=== PATIENT | male | born 1970 | race Caucasian/White ===

== ENCOUNTER → 2019-11-22 07:02 | Outpatient (CLI) | payer OTHER, SELFPAY ==
[2017-01-12 15:06] VITALS: BMI 33.5
[2019-11-22 10:22] LABS: Absolute Neutrophil Count 2.6 X10^3/uL (2.0-7.7); Basophil# 0.03 X10^3/uL; Basophil% 0.6 % (0-1); Eosinophil# 0.14 X10^3/uL; Eosinophils% 2.7 % (0-5); Hematocrit 47.2 % (40-54); Hemoglobin 15.5 g/dL (13.0-16.5); Lymphocyte % 34.2 % (19-41); Mean Corp Hgb Conc 32.8 g/dL (32-36); Mean Corpuscular Hgb 30.2 pg (27.0-32.0); Mean Platelet Vol. 10.5 fl (6.2-12.0); Monocyte# 0.65 X10^3/uL; Monocyte% 12.3 % (0-10); NRBC Flagged by Analyzer 0 % (0-5); Neutrophil # 2.63 X10^3/uL (2.7-7.7); Neutrophil % 49.8 % (47-70); Platelet Count 242 K/mm3 (150-450); RBC Distribution Width CV 11.8 % (11.6-14.6); RBC Distribution Width SD 39.8 fl (35.1-43.9); Red Blood Count 5.13 M/mm3 (4.6-6.2); White Blood Count 5.3 K/mm3 (4.4-11.0)
[2019-11-22 10:32] LABS: Anion Gap 3 (5-15); BUN 21 mg/dL (7-18); BUN/Creat Ratio 13.7 RATIO (10-20); Chloride 106 mmol/L (98-107); Cholesterol 163 mg/dL (200); Creatinine, Serum 1.53 mg/dL (0.70-1.30); EST Glomerular Filtration Rate 52 mL/min (>60); Est Glom Filt Rate - Afr Amer 63 mL/min (>60); Glucose 91 mg/dL (74-106); High Density Lipoprotein 30 mg/dL; Potassium 3.8 mmol/L (3.5-5.1); Sodium Level 139 mmol/L (136-145); Triglycerides 308 mg/dL; Very Low Density Lipoprotein 62 mg/dL (5-40); Vitamin D,25 Hydroxy 18.2 ng/mL
[2019-11-22 10:57] LABS: Erythrocyte Sedimentation Rate 5 mm/hr (0-15)
== END ==
PROVIDERS: PCP Family Medicine; Referring Provider Family Medicine; Visit Provider Family Medicine
DX: E78.2 Mixed hyperlipidemia (principal); E55.9 Vitamin D deficiency, unspecified; R76.0 Raised antibody titer
CPT/HCPCS: 36415; 80048; 80061; 82306; 85025; 85652

== ENCOUNTER → 2022-11-28 | Outpatient (CLI) | payer OTHER, SELFPAY ==
[2022-11-28 10:23] LABS: Absolute Lymphocyte Count 1.83 X10^3/uL (0.83-4.51); Absolute Neutrophil Count 2.5 X10^3/uL (2.0-7.7); Basophil# 0.05 X10^3/uL; Basophil% 0.9 % (0-1); Eosinophil# 0.22 X10^3/uL; Eosinophils% 4.1 % (0-5); Hematocrit 49.5 % (40-54); Hemoglobin 16.3 g/dL (13.0-16.5); Lymphocyte # 1.83 X10^3/ul (0.83-4.51); Mean Corp Hgb Conc 32.9 g/dL (32-36); Mean Corpuscular Volume 94.1 fL (80-94); Mean Platelet Vol. 10.8 fl (6.2-12.0); Monocyte# 0.76 X10^3/uL; Monocyte% 14.1 % (0-10); NRBC Flagged by Analyzer 0 % (0-5); Neutrophil # 2.49 X10^3/uL (2.7-7.7); Neutrophil % 46.3 % (47-70); Platelet Count 227 K/mm3 (150-450); RBC Distribution Width CV 11.6 % (11.6-14.6); RBC Distribution Width SD 40.1 fl (35.1-43.9); Red Blood Count 5.26 M/mm3 (4.6-6.2); White Blood Count 5.4 K/mm3 (4.4-11.0)
[2022-11-28 10:43] LABS: Microalbumin,Random Urine < 5.0 mg/L (NO RANGE EST.)
[2022-11-28 10:59] LABS: ALB/GLOB Ratio 1.3 RATIO (0.9-2.4); AST(SGOT) 22 U/L (15-37); Alanine Aminotransfer ALT/SGPT 49 U/L (16-61); Alkaline Phosphatase 38 U/L (45-117); Anion Gap 5 (5-15); BUN 18 mg/dL (7-18); BUN/Creat Ratio 12.5 RATIO (10-20); Calcium,Total 9.6 mg/dL (8.5-10.1); Chloride 105 mmol/L (98-107); Cholesterol 195 mg/dL (200); Creatinine, Serum 1.44 mg/dL (0.70-1.30); EST Glomerular Filtration Rate 55 mL/min (>60); Est Glom Filt Rate - Afr Amer 66 mL/min (>60); Globulin 3.1 g/dL (2.2-4.2); Glucose 103 mg/dL (74-106); High Density Lipoprotein 38 mg/dL; PSA,Total - Annual Screen 0.45 ng/mL (0.00-4.00); Potassium 4.2 mmol/L (3.5-5.1); Protein, Total 7.1 g/dL (6.4-8.2); Sodium Level 138 mmol/L (136-145); Triglycerides 305 mg/dL; Very Low Density Lipoprotein 61 mg/dL (5-40)
== END | disposition home or self-care (01) ==
LOC: MTLAB 07:09
PROVIDERS: PCP Family Medicine; Referring Provider Family Medicine; Visit Provider Family Medicine
DX: E78.1 Pure hyperglyceridemia (principal); L40.50 Arthropathic psoriasis, unspecified; N18.31 Chronic kidney disease, stage 3a; E88.81 Metabolic syndrome and other insulin resistance; I12.9 Hypertensive chronic kidney disease with stage 1 through stage 4 chronic kidney disease, or unspecified chronic kidney disease
CPT/HCPCS: 36415; 80053; 80061; 82043; 82570; 84153; 85025; G0103

== ENCOUNTER → 2023-12-07 | Outpatient (CLI) | payer OTHER, SELFPAY ==
[2023-12-07 10:37] LABS: Absolute Lymphocyte Count 1.81 X10^3/uL (0.83-4.51); Absolute Neutrophil Count 2.2 X10^3/uL (2.0-7.7); Basophil# 0.05 X10^3/uL; Eosinophil# 0.35 X10^3/uL; Eosinophils% 6.7 % (0-5); Hematocrit 47.2 % (40-54); Hemoglobin 15.7 g/dL (13.0-16.5); Lymphocyte # 1.81 X10^3/ul (0.83-4.51); Lymphocyte % 34.5 % (19-41); Mean Corp Hgb Conc 33.3 g/dL (32-36); Mean Corpuscular Hgb 30.7 pg (27.0-32.0); Mean Corpuscular Volume 92.4 fL (80-94); Mean Platelet Vol. 10.7 fl (6.2-12.0); Monocyte# 0.81 X10^3/uL; Monocyte% 15.5 % (0-10); NRBC Flagged by Analyzer 0 % (0-5); Neutrophil # 2.21 X10^3/uL (2.7-7.7); Neutrophil % 42.1 % (47-70); Platelet Count 212 K/mm3 (150-450); RBC Distribution Width CV 11.9 % (11.6-14.6); Red Blood Count 5.11 M/mm3 (4.6-6.2); White Blood Count 5.2 K/mm3 (4.4-11.0)
[2023-12-07 10:57] LABS: ALB/GLOB Ratio 1.1 RATIO (0.9-2.4); AST(SGOT) 27 U/L (15-37); Alanine Aminotransfer ALT/SGPT 48 U/L (16-61); Albumin, Serum 3.9 g/dL (3.2-5.0); Alkaline Phosphatase 41 U/L (45-117); Anion Gap 7 (5-15); BUN 19 mg/dL (7-18); Calcium,Total 9.4 mg/dL (8.5-10.1); Chloride 105 mmol/L (98-107); Creatinine, Serum 1.36 mg/dL (0.70-1.30); EST Glomerular Filtration Rate 58 mL/min (>60); Est Glom Filt Rate - Afr Amer 71 mL/min (>60); Globulin 3.4 g/dL (2.2-4.2); Glucose 100 mg/dL (74-106); Potassium 4.1 mmol/L (3.5-5.1); Protein, Total 7.3 g/dL (6.4-8.2); Sodium Level 139 mmol/L (136-145)
[2023-12-07 11:06] LABS: Hemoglobin A1c 5.4 % (3.8-5.6)
== END | disposition home or self-care (01) ==
PROVIDERS: PCP Family Medicine; Referring Provider Family Medicine; Visit Provider Family Medicine
DX: I12.9 Hypertensive chronic kidney disease with stage 1 through stage 4 chronic kidney disease, or unspecified chronic kidney disease (principal); L40.50 Arthropathic psoriasis, unspecified; N18.31 Chronic kidney disease, stage 3a; E88.810 Metabolic syndrome
CPT/HCPCS: 36415; 80053; 82306; 83036; 85025

== ENCOUNTER → 2024-07-04 | Outpatient (CLI) | payer OTHER, SELFPAY ==
[2024-07-04 10:46] LABS: Absolute Lymphocyte Count 1.71 X10^3/uL (0.83-4.51); Basophil# 0.05 X10^3/uL; Basophil% 0.8 % (0-1); Eosinophil# 0.32 X10^3/uL; Eosinophils% 5.4 % (0-5); Hematocrit 46.4 % (40-54); Hemoglobin 15.5 g/dL (13.0-16.5); Lymphocyte # 1.71 X10^3/ul (0.83-4.51); Mean Corp Hgb Conc 33.4 g/dL (32-36); Mean Corpuscular Hgb 31.1 pg (27.0-32.0); Mean Corpuscular Volume 93.2 fL (80-94); Mean Platelet Vol. 10.1 fl (6.2-12.0); Monocyte# 0.79 X10^3/uL; Monocyte% 13.4 % (0-10); NRBC Flagged by Analyzer 0 % (0-5); Neutrophil # 3.02 X10^3/uL (2.7-7.7); Neutrophil % 51.2 % (47-70); Platelet Count 277 K/mm3 (150-450); RBC Distribution Width CV 11.8 % (11.6-14.6); RBC Distribution Width SD 40.6 fl (35.1-43.9); Red Blood Count 4.98 M/mm3 (4.6-6.2); White Blood Count 5.9 K/mm3 (4.4-11.0)
[2024-07-04 11:26] LABS: Microalbumin,Random Urine < 12.0 mg/L (NO RANGE EST.); Microalbumin:Creatinine Ratio UNABLE TO CALCULATE mg/g CRE
[2024-07-04 11:33] LABS: Hemoglobin A1c 5.3 % (<=5.6)
[2024-07-04 11:56] LABS: ALB/GLOB Ratio 1.6 RATIO (0.9-2.4); AST(SGOT) 25 U/L (<=37); Alanine Aminotransfer ALT/SGPT 30 U/L (<=46); Albumin, Serum 4.5 g/dL (3.5-5.0); Alkaline Phosphatase 45 U/L (40-129); Anion Gap 13 (5-15); BUN 18 mg/dL (4-19); BUN/Creat Ratio 13.4 RATIO (10-20); Bilirubin, Direct 0.27 mg/dL (0.00-0.30); Calcium,Total 9.8 mg/dL (7.6-11.0); Chloride 102 mmol/L (98-108); Cholesterol 173 mg/dL (<=200); Creatinine, Serum 1.34 mg/dL (0.70-1.20); EST Glomerular Filtration Rate 63 (>60); Globulin 2.9 g/dL (2.2-4.2); Glucose 98 mg/dL (70-99); Hepatitis B Surface Antibody Nonreactive; Hepatitis B Surface Antigen Nonreactive (Nonreactive); Hepatitis C Antibody Nonreactive (Nonreactive); High Density Lipoprotein 30 mg/dL; Low Density Lipoprotein Calc. 92 mg/dL; Potassium 4.5 mmol/L (3.3-5.1); Protein, Total 7.3 g/dL (5.9-8.4); Sodium Level 141 mmol/L (133-145); Total Bilirubin 0.67 mg/dL (0.00-1.30); Triglycerides 256 mg/dL; Very Low Density Lipoprotein 51 mg/dL (5-40); cholesterol:hdl ratio screen 5.81
[2024-07-07 04:07] LABS: HCV Quant. RNA PCR HCV Not Detected IU/mL (.); Hepatitis B Core Ab Total Negative (Negative); QNTFERON TB Mitogen Value > 10.00 IU/mL (.); QNTFERON TB Nil Value 0.04 IU/mL (.); QNTFERON TB1+ Ag Value 0.04 IU/mL (.); QNTFERON TB2+ Ag Value 0.03 IU/mL (.); QNTIFERON TB Positive Criteria Negative (Negative)
== END | disposition home or self-care (01) ==
LOC: MTLAB 07:02
PROVIDERS: PCP Family Medicine; Referring Provider Family Medicine; Visit Provider Family Medicine
DX: I12.9 Hypertensive chronic kidney disease with stage 1 through stage 4 chronic kidney disease, or unspecified chronic kidney disease (principal); L40.50 Arthropathic psoriasis, unspecified; N18.31 Chronic kidney disease, stage 3a; R73.01 Impaired fasting glucose; E78.2 Mixed hyperlipidemia; Z79.899 Other long term (current) drug therapy
CPT/HCPCS: 36415; 80053; 80061; 82043; 82248; 82570; 83036; 85025; 86480; 86704; 86706; 86803; 87340; 87522

== ENCOUNTER → 2024-08-30 | Outpatient (CLI) | payer OTHER, SELFPAY ==
--- OUTSIDE RECORDS SUMMARY | 2024-08-30 07:08 | XMS RPT_ITS | CCD ---
Author Organization [facility] Care Team Providers Care Access Database Developer Name Role Phone Ch LASER MACHINE OPERATOR, Jennifer Tory Unavailable Unavaila ble Ch LASER MACHINE OPERATOR, Jennifer Tory Unavailable Unavaila ble No, Physician Unavailable Unavailable Ivanauskas, Saulius Unavailable Unavailable Ivanauskas, Saulius Unavailable Unavailable Saenz, Thomas A Unavailable Unavailable Stadnick, Carson S Unavailable Unavailable Stadnick, Carson S Unavailable Unavailable No, Physician Primary Care Provider Unavailabl e No, Physician Primary Care Provider Unavailabl e Saenz, Thomas Mark Primary Care Provider Saenz Thomas A Unavailable Unavailable Unavailable Dnay POPE, Thomas Mark Primary Care Provider No, Physician Primary Care Provider Unavailabl e SAENZ, THOMAS MARK Primary Care Unavailable SAENZ, THOMAS MARK Admitting Unavailable Saenz, Thomas Referring Unavailable Saenz, Thomas Primary Care Unavailable Saenz, Thomas Attending Unavailable Falls, Luis Consulting Unavailable Saenz, Thomas Primary Care Unavailable Saenz, Thomas Attending Unavailable Saenz, Thomas Referring Unavailable FALLS, LUIS MORSE Attending Unavailabl e SAENZ, THOMAS MARK Primary Care Unavailable FALLS, LUISBreezy MORSE Attending Unavailabl e SAENZ, THOMAS MARK Primary Care Unavailable FALLS, LUIS MORSE Attending Unavailabl e SAENZ, THOMAS MARK Primary Care Unavailable FALLS, LUIS MORSE Attending Unavailabl e SAENZ, THOMAS MARK Primary Care Unavailable FALLS, LUIS MORSE Attending Unavailabl e SAENZ, THOMAS MARK Primary Care Unavailable Allergies Allergy Classification Reported Allergen(s) Allergy Type Date of Onset Reaction(s) Facility Penicillins (antibiotic) (1 source) Amoxicillin; Translations: [Amoxicillin TABS] [facility] Work Phone: (20 sources) amoxicillin; Translations: [amoxicillin] Drug Allergy 07-05-2015 [facility] Work Phone: (1 source) Amoxicillin Drug Allergy 03-23-2023 [facility] Medications Current Medications Medication Drug Class(es) Dates Sig (Normalized) Sig (Original) aspirin 325 mg oral tablet (20 sources) Platelet Aggregation Inhibitor, Nonsteroidal Anti-inflammatory Drug take 1 tablet by mouth once daily aspirin 325 MG tablet Take 1 (one) tablet (325 mg total) by mouth daily . Active take 1 tablet by mouth once roman y Aspirin EC 325 MG Oral Tablet Delayed Release Take 1 tablet daily Quantity: 0 Refills: 0 Ordered: 18-Jul-2020 DO Active cholecalciferol 0.05 mg oral tablet (20 sources) Vitamin D take 1 tablet by mouth once daily cholecalciferol, vitamin D3, 50 mcg (2,000 unit) Tab Take 1 (one) tablet (2,000 Units total) by mouth daily . Active cod liver oil Oil (20 sources) cod liver oil Oi l Take by mouth daily . Active cod liver oil Oi l Take by mouth daily . 0 Active 1 ml etanercept 50 mg/ml auto-injector (20 sources) Tumor Necrosis Factor Beverly Start: 04-29-2023 End: 04-29-2024 inject 1 mL by subcutaneous injection every week etanercept (EnbreL SureClick) 50 mg/mL (1 mL) Pen single use prefilled syringe Indications: Bilateral sacroiliitis , Psoriatic arthritis (HCC) Inject 1 mL (50 mg total) under the skin once a week . 4 mL 11 04/29/2024 Active Start: 04-15-2021 End: 06-18-2023 inject 1 mL by subcutaneous injection every week EnbreL 50 mg/mL (1 mL) single use prefilled syringe Indications: Bilateral sacroiliitis (HCC) , Psoriatic arthritis (HCC) Inject 1 mL (50 mg total) under the skin once a week . 12 mL 3 04/29/2023 04/29/2023 Discontinued Start: 01-13-2019 End: 01-05-2020 inject 40 mg by subcutaneous injection once EnbreL 50 mg/mL (1 mL) single use prefilled syringe Indications: Psoriatic arthritis (HCC) Inject 40 mg under the skin once every Thursday. Keep Refrigerated. . 4 mL 2 07/10/2019 01/05/2020 Discontinued (Reorder (Suppress CancelRx Message to Pharmacy)) Start: 05-27-2018 End: 01-13-2019 inject 1 mL by subcutaneous injection every week ENBREL 50 mg/mL (0.98 mL) single use prefilled syringe Indications: Psoriatic arthritis (HCC) Inject 1 ml (50 mg) under the skin once weekly. Keep Refrigerated. 4 mL 5 05/27/2018 01/13/2019 Discontinued (Reorder (Suppress CancelRx Message to Pharmacy)) Start: 07-10-2016 End: 01-15-2018 ENBREL 50 mg/mL (0.98 mL) si ngle use prefilled syringe Indications: Psoriatic arthritis (HCC) Inject 1 ml (50 mg) under the skin once a week Keep Refrigerated. 4 mL 5 09/22/2017 Active Start: 08-07-2015 ENBREL SURECLI CK 50 MG/ML SOAJ SQ q 7day ETANERCEPT [id number] Jennifer Cevallos folic acid 0.8 mg oral tablet (20 sources) take 1 tablet by yrn th once daily folic acid (FOLVITE) 800 MCG tablet Take 1 (one) tablet (800 mcg total) by mouth daily . Active take 1 tablet by mouth once roman y Folic Acid 1 MG Oral Tablet TAKE 1 TABLET DAILY. Quantity: 0 Refills: 0 Ordered: 18-Jul-2020 DO Active Folic Acid TABS Quantity: 0 Refills: 0 Ordered: 18-Jul-2020 DO Active 24 hr metFORMIN hydrochloride 500 mg extended release oral tablet (8 sources) Biguanide Start: 04-16-2022 take 1 tablet by mouth once daily metFORMIN (GLUCOPHAGE-XR) 500 MG 24 hr tablet Take 1 (one) tablet (500 mg total) by mouth daily . 04/16/2022 Active 1 ml secukinumab 150 mg/ml auto-injector (4 sources) Interleukin-17A Antagonist Start: 08-11-2024 secukinumab (Cosentyx Pen, 2 Pens,) 150 mg/mL Pen Indications: Psoriasis , Psoriatic arthritis (HCC) Inject 2 mL (300 mg total) under the skin every 28 days To start after loading dose Start: 08/11/24. 2 mL 08/11/2024 Active Start: 08-11-2024 secukinumab (C osentyx Pen, 2 Pens,) 150 mg/mL Pen Indications: Psoriasis , Psoriatic arthritis (HCC) Inject 2 mL (300 mg total) under the skin every 28 days To start after loading dose Start: 08/11/24. 2 mL 11 08/11/2024 Active Start: 07-07-2024 secukinumab (C osentyx Pen, 2 Pens,) 150 mg/mL Pen Indications: Psoriasis , Psoriatic arthritis (HCC) Take 300 mg once weekly at weeks 0, 1, 2, 3, and 4 followed by 300 mg every 4 weeks. . 10 mL 07/07/2024 Active Completed/Discontinued Medications Medication Drug Class(es) Dates Sig (Normalized) Sig (Original) acetaminophen 325 mg / HYDROcodone bitartrate 5 mg oral tablet (4 sources) Opioid Agonist Start: 08-07-2015 End: 08-07-2015 take 1 tablet by mouth every four hours as needed NORCO 5-325 MG TABS 1 tab po q4h as needed HYDROCODONE-ACETAMI NOPHEN [id number] Jennifer Cevallos atenolol 50 mg oral tablet (20 sources) beta-Adrenergic Beverly Start: 08-07-2015 take 1 tablet by mouth once daily ATENOLOL 50 MG TABS One tablet by mouth daily ATENOLOL [id number] Jennifer Cevallos ergocalciferol 2000 unt oral tablet (2 sources) Provitamin D2 Compound take 1 tablet by mouth once daily VITAMIN D2 2000 UNIT TABS One tablet by mouth daily. ERGOCALCIFEROL [id number] Quiana A Posten LASER MACHINE OPERATOR meloxicam 15 mg oral tablet (1 source) Nonsteroidal Anti-inflammatory Drug Start: 07-18-2020 take 1 tablet by mouth once daily Meloxicam 15 MG Oral Tablet TAKE 1 TABLET DAILY. Quantity: 15 Refills: 0 Ordered: 03-Aug-2020 Rigoberto Perez MD Start : 18-Jul-2020 Active MULTIPLE VITAMIN (2 sources) take 1 tablet by mouth once daily MULTIPLE VITAMIN TABS One tablet by mouth daily. MULTIPLE VITAMIN [id number] Quiana A Posten LASER MACHINE OPERATOR rivaroxaban 20 mg oral tablet (5 sources) Factor Xa Inhibitor Start: 08-07-2015 End: 01-27-2017 take 1 tablet by mouth once daily XARELTO 20 MG TABS One tablet by mouth daily RIVAROXABAN [id number] Cullen Flores End: 01-15-2017 take 1 tablet by mouth twice daily rivaroxaban (XARELTO) 15 mg Tab Take 15 mg by mouth 2 (two) times a day. 01/15/2017 Discontinued Vitamin D CAPS (1 source) Vitamin D CAPS T YASH 1 CAPSULE Daily Quantity: 0 Refills: 0 Ordered: 18-Jul-2020 DO Active Problems Active Problems Problem Classification Problem Date Documented Da te Episodic/Chronic Essential hypertension (20 sources) Hypertensive disorder; Translations: [Essential (primary) hypertension] Onset: 01-05-2020 02-19-2016 Chronic Hypertension with complications and secondary hypertension (1 source) Hypertensive chronic kidney disease with stage 1 through stage 4 chronic kidney disease, or unspecified chronic kidney disease; Translations: [Hypertensive chronic kidney disease with stage 1 through stage 4 chronic kidney disease, or unspecified chronic kidney disease] Onset: 07-07-2024 Chronic Immunizations and screening for infectious disease (1 source) Viral screening status; Translations: [Encounter for screening for other viral diseases] Episodic Osteoarthritis (3 sources) Osteoarthritis; Translations: [Arthropathy] Chronic Other aftercare (1 source) Patient encounter status; Translations: [Encounter for therapeutic drug level monitoring] Episodic Other aftercare (3 sources) Taking high risk medication; Translations: [Other parts counterman (current) drug therapy] 05-03-2023 Episodic Other aftercare (2 sources) Other parts counterman (current) drug therapy; Translations: [Other correction (current) drug therapy] Onset: 06-29-2024 Episodic Other connective tissue disease (1 source) Foot pain; Translations: [Pain in limb] Episodic Other connective tissue disease (1 source) Peroneal tendinitis of right lower limb; Translations: [Other enthesopathy of ankle and tarsus] Episodic Other inflammatory condition of skin (7 sources) Psoriasis with arthropathy; 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, unspecified] Onset: 08-07-2015 08-07-2015 Chronic Other inflammatory condition of skin (20 sources) Psoriatic arthritis; 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, unspecified] Onset: 08-07-2015 01-05-2020 Chronic Other inflammatory condition of skin (4 sources) Arthropathic psoriasis, unspecified; 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, unspecified] Onset: 04-09-2022 Chronic Other inflammatory condition of skin (3 sources) Psoriasis; Translations: [Psoriasis, unspecified] 04-29-2024 Chronic Other inflammatory condition of skin (2 sources) Psoriasis, unspecified; Translations: [Psoriasis, unspecified] Onset: 04-29-2024 Chronic Other non-traumatic joint disorders (1 source) Bilateral rotator cuff arthropathy of shoulder; Translations: [Other specific arthropathies, not elsewhere classified, right shoulder] Chronic Other non-traumatic joint disorders (1 source) Ankle pain; Translations: [Pain in joint, ankle and foot] Episodic Other skin disorders (1 source) H/O: arthritis; Translations: [Personal history of arthritis] Episodic Spondylosis; intervertebral disc disorders; other back problems (7 sources) Bilateral inflammation of sacroiliac joint; Translations: [Sacroiliitis, not elsewhere classified] Onset: 04-29-2024 Chronic Unclassified (4 sources) Patient encounter status; Translations: [Encounter for monitoring of etanercept therapy] Past or Other Problems Problem Classification Problem Date Documented Da te Episodic/Chronic Coagulation and hemorrhagic disorders (20 sources) Factor V Leiden mutation; Translations: [Disorder of hemostatic system] Onset: 01-30-2016 Resolved: 04-09-2022 01-30-2016 Chronic Other lower respiratory disease (20 sources) Multiple nodules of lung; Translations: [Other nonspecific abnormal finding of lung field] Onset: 08-07-2015 Resolved: 04-09-2022 08-07-2015 Episodic Other nutritional; endocrine; and metabolic disorders (20 sources) 5,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; 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] Onset: 01-30-2016 Resolved: 04-09-2022 01-30-2016 Chronic Pulmonary heart disease (20 sources) Pulmonary embolism; Translations: [Other pulmonary embolism without acute cor pulmonale] Onset: 08-07-2015 Resolved: 04-09-2022 08-07-2015 Episodic Unclassified (1 source) Psoriatic arthritis (HCC) Results Test Name Value Interpretation Reference Range Facility Hepatitis B Core Ab Totalon 07-07-2024 HEP B CORE,TOT Negative Normal Negative [facility] Comment on above: Result Comment: Perf ormed at: CB - [facility] [place] [address], [place], [place] [id number] Director Of Litigation: Morgan Patterson PhD, Phone: [phone] Performed at: [facility] [address] [id number] Director Of Litigation: Rasheed Berumen MD, Phone: [phone] Performed By: #### L 500.4100, L100.0100, L501.9985, L500.4050 #### [facility] [address] [place], [address] Hepatitis C,RNA PCR Viral Lo staff radiographer 07-07-2024 HCV log 10 TNP Normal . [facility] Comment on above: Performed By: #### L 500.4100, L100.0100, L501.9985, L500.4050 #### [facility] [address] [place], [address] HCV QT RNA PCR Not detected Normal . [facility] Comment on above: Performed By: #### L 500.4100, L100.0100, L501.9985, L500.4050 #### [facility] [address] [place], [place], [id number] TEST INFO: Comment Normal . [facility] Comment on above: Result Comment: The quantitative range of this assay is 15 IU/mL to 100 million IU/mL. Performed By: #### L 500.4100, L100.0100, L501.9985, L500.4050 #### [facility] [address] [place], [address] Quantiferon TB-Gold+on 07-07 QFT MITOGEN SUSANNE > 10.00 Normal . [facility] Comment on above: Performed By: #### L 500.4100, L100.0100, L501.9985, L500.4050 #### [facility] [address] [place], [address] QFT NIL VALUE 0.04 IU/mL Normal . [facility] Comment on above: Performed By: #### L 500.4100, L100.0100, L501.9985, L500.4050 #### [facility] [address] [place], [place], [phone] (614) QFT TB GOLD+ Comment Normal . [facility] Comment on above: Result Comment: Jeffrey tiFERON-TB Gold Plus is a qualitative indirect test for M tuberculosis infection (including disease) and is intended for use in conjunction with risk assessment, radiography, and other medical and diagnostic evaluations. The QuantiFERON-TB Gold Plus result is determined by subtracting the Nil value from either TB antigen (Ag) value. The Mitogen tube serves as a control for the test. Performed By: #### L 500.4100, L100.0100, L501.9985, L500.4050 #### [facility] [address] [place], [address] (928) QFT TB POS CRIT Negative Normal Negative [facility] Comment on above: Result Comment: No r esponse to M tuberculosis antigens detected. Infection with M tuberculosis is unlikely, but high risk individuals should be considered for additional testing (ATS/IDSA/CDC Clinical Practice Guidelines, 2017). The reference range is an Antigen minus Nil result of <0.35 IU/mL. The specimen received for QuantiFERON testing was incubated by the ordering institution. Specific procedures outlined in our Directory of Services and in the package insert for the QuantiFERON Gold (In Tube) test must be followed to enable for proper stimulation of cells for the production of interferon gamma. Chemiluminescence immunoassay methodology Performed By: #### L 500.4100, L100.0100, L501.9985, L500.4050 #### [facility] [address] [place], [place], [phone] ([address] QFT TB1+ AG SUSANNE 0.04 IU/mL Normal . [facility] Comment on above: Performed By: #### L 500.4100, L100.0100, L501.9985, L500.4050 #### [facility] [address] [place], [address] QFT TB2+ AG SUSANNE 0.03 IU/mL Normal . [facility] Comment on above: Performed By: #### L 500.4100, L100.0100, L501.9985, L500.4050 #### [facility] [address] [place], [address] Bilirubin, Directon 07-05-19 Bilirubin.direct [Mass/Vol] 0.27 mg/dL Normal 0.00-0.30 [facility] Comment on above: Order Comment: Order Date: 06/13/24 Order Info: [id number] - CMP Order Info: [id number] - LIPID RESULTS FOR CMP,MIACRE,A1C,LIPID,CBCD GO TO DR. SAENZ RESULTS FOR CBCD,CREATININE,HEP PANELS,LIVER, AND QF GO TO [facility] FAX: Performed By: #### L 3100.0460, L3400.8000, L502.0250, L3890.6102, L501.4700, L3890.6202, L3890.6301, L7000.7000 #### [facility] [address] [place], [address] CBC W/Diff, Automatedon 06-08 Absolute Lymph 1.71 X10 3/uL Normal 0.83-4.51 [facility] Comment on above: Order Comment: Order Date: 06/13/24 Order Info: [id number] - CBCD Performed By: #### L 500.4100, L100.0100, L501.9985, L500.4050 #### [facility] [address] [place], [address] Absolute Neut 3.0 X10 3/uL Normal 2.0-7.7 [facility] Comment on above: Order Comment: Order Date: 06/13/24 Order Info: [id number] - CBCD Performed By: #### L 500.4100, L100.0100, L501.9985, L500.4050 #### [facility] [address] [place], [address] Basophils/100 WBC (Bld) 0.8 % Normal 0-1 [facility] Comment on above: Order Comment: Order Date: 06/13/24 Order Info: 0184-1 - CBCD Performed By: #### L 500.4100, L100.0100, L501.9985, L500.4050 #### [facility] [address] [place], [address] Eosinophils/100 WBC (Bld) 5.4 % High 0-5 [facility] Comment on above: Order Comment: Order Date: 06/13/24 Order Info: 0184-1 - CBCD Performed By: #### L 500.4100, L100.0100, L501.9985, L500.4050 #### [facility] [address] [place], [address] Erythrocyte distribution width (RBC) [Ratio] 11.8 % Normal 11.6-14.6 [facility] Comment on above: Order Comment: Order Date: 06/13/24 Order Info: 0184-1 - CBCD Performed By: #### L 500.4100, L100.0100, L501.9985, L500.4050 #### [facility] [address] [place], [address] Hematocrit (Bld) [Volume fraction] 46.4 % Normal 40-54 [facility] Comment on above: Order Comment: Order Date: 06/13/24 Order Info: 0184-1 - CBCD Performed By: #### L 500.4100, L100.0100, L501.9985, L500.4050 #### [facility] [address] [place], [address] Hemoglobin (Bld) [Mass/Vol] 15.5 g/dL Normal 13.0-16.5 [facility] Comment on above: Order Comment: Order Date: 06/13/24 Order Info: 0184-1 - CBCD Performed By: #### L 500.4100, L100.0100, L501.9985, L500.4050 #### [facility] [address] [place], [address] IG% 0.200 Normal 0.0-0.9 [facility] Comment on above: Order Comment: Order Date: 06/13/24 Order Info: [id number] - CBCD Result Comment: IG% - Immature Granulocytes (promyelocytes, myelocytes and metamyelocytes) > 1% indicates that a LEFT SHIFT is Present. Performed By: #### L 500.4100, L100.0100, L501.9985, L500.4050 #### [facility] [address] [place], [address] Lymphocytes/100 WBC (Bld) 29.0 % Normal 19-41 [facility] Comment on above: Order Comment: Order Date: 06/13/24 Order Info: 0184-1 - CBCD Performed By: #### L 500.4100, L100.0100, L501.9985, L500.4050 #### [facility] [address] [place], [address] MCH (RBC) [Entitic mass] 31.1 pg Normal 27.0-32.0 [facility] Comment on above: Order Comment: Order Date: 06/13/24 Order Info: 0184-1 - CBCD Performed By: #### L 500.4100, L100.0100, L501.9985, L500.4050 #### [facility] [address] [place], [address] MCHC (RBC) [Mass/Vol] 33.4 g/dL Normal 32-36 [facility] Comment on above: Order Comment: Order Date: 06/13/24 Order Info: 0184-1 - CBCD Performed By: #### L 500.4100, L100.0100, L501.9985, L500.4050 #### [facility] [address] [place], [address] MCV (RBC) [Entitic vol] 93.2 fL Normal 80-94 [facility] Comment on above: Order Comment: Order Date: 06/13/24 Order Info: 0184-1 - CBCD Performed By: #### L 500.4100, L100.0100, L501.9985, L500.4050 #### [facility] [address] [place], [address] Monocytes/100 WBC (Bld) 13.4 % High 0-10 [facility] Comment on above: Order Comment: Order Date: 06/13/24 Order Info: 0184-1 - CBCD Performed By: #### L 500.4100, L100.0100, L501.9985, L500.4050 #### [facility] [address] [place], [address] Neutrophils/100 WBC (Bld) 51.2 % Normal 47-70 [facility] Comment on above: Order Comment: Order Date: 06/13/24 Order Info: 0184-1 - CBCD Performed By: #### L 500.4100, L100.0100, L501.9985, L500.4050 #### [facility] [address] [place], [address] Nucleated RBC (Bld) [#/Vol] 0 10*3/uL Normal 0-5 [facility] Comment on above: Order Comment: Order Date: 06/13/24 Order Info: 0184-1 - CBCD Performed By: #### L 500.4100, L100.0100, L501.9985, L500.4050 #### [facility] [address] [place], [address] Platelet mean volume (Bld) [Entitic vol] 10.1 fL Normal 6.2-12.0 [facility] Comment on above: Order Comment: Order Date: 06/13/24 Order Info: 0184-1 - CBCD Performed By: #### L 500.4100, L100.0100, L501.9985, L500.4050 #### [facility] [address] [place], [address] Platelets (Bld) [#/Vol] 277 10*3/uL Normal 150-450 [facility] Comment on above: Order Comment: Order Date: 06/13/24 Order Info: 0184-1 - CBCD Performed By: #### L 500.4100, L100.0100, L501.9985, L500.4050 #### [facility] [address] [place], [address] RBC (Bld) [#/Vol] 4.98 10*6/uL Normal 4.6-6.2 [facility] Comment on above: Order Comment: Order Date: 06/13/24 Order Info: 0184-1 - CBCD Performed By: #### L 500.4100, L100.0100, L501.9985, L500.4050 #### [facility] [address] [place], [address] RDW SD 40.6 fl Normal 35.1-43.9 [facility] Comment on above: Order Comment: Order Date: 06/13/24 Order Info: 0184-1 - CBCD Performed By: #### L 500.4100, L100.0100, L501.9985, L500.4050 #### [facility] [address] [place], [address] WBC (Bld) [#/Vol] 5.9 10*3/uL Normal 4.4-11.0 [facility] Comment on above: Order Comment: Order Date: 06/13/24 Order Info: 0184-1 - CBCD Performed By: #### L 500.4100, L100.0100, L501.9985, L500.4050 #### [facility] [address] [place], [address] Comprehensive Metabolic Prof ilon 07-04-2024 Albumin [Mass/Vol] 4.5 g/dL Normal 3.5-5.0 [facility] Comment on above: Order Comment: Order Date: 06/13/24 Order Info: [id number] - CMP Order Info: [id number] - LIPID RESULTS FOR CMP,MIACRE,A1C,LIPID,CBCD GO TO DR. SAENZ RESULTS FOR CBCD,CREATININE,HEP PANELS,LIVER, AND QF GO TO [facility] FAX: Performed By: #### L 500.4100, L100.0100, L501.9985, L500.4050 #### [facility] [address] [place], [address] Albumin/Globulin [Mass ratio] 1.6 {ratio} Normal 0.9-2.4 [facility] Comment on above: Order Comment: Order Date: 06/13/24 Order Info: [id number]- - CMP Order Info: [id number] - LIPID RESULTS FOR CMP,MIACRE,A1C,LIPID,CBCD GO TO DR. SAENZ RESULTS FOR CBCD,CREATININE,HEP PANELS,LIVER, AND QF GO TO [facility] FAX: Performed By: #### L 500.4100, L100.0100, L501.9985, L500.4050 #### [facility] [address] [place], [address] ALK PHOS 45 U/L Normal 40-129 [facility] Comment on above: Order Comment: Order Date: 06/13/24 Order Info: [id number] - CMP Order Info: [id number] - LIPID RESULTS FOR CMP,MIACRE,A1C,LIPID,CBCD GO TO DR. SAENZ RESULTS FOR CBCD,CREATININE,HEP PANELS,LIVER, AND QF GO TO [facility] FAX: Performed By: #### L 500.4100, L100.0100, L501.9985, L500.4050 #### [facility] [address] [place], [address] ALT [Catalytic activity/Vol] 30 U/L Normal <=46 [facility] Comment on above: Order Comment: Order Date: 06/13/24 Order Info: [id number] - CMP Order Info: [id number] - LIPID RESULTS FOR CMP,MIACRE,A1C,LIPID,CBCD GO TO DR. SAENZ RESULTS FOR CBCD,CREATININE,HEP PANELS,LIVER, AND QF GO TO [facility] FAX: Performed By: #### L 500.4100, L100.0100, L501.9985, L500.4050 #### [facility] [address] [place], [address] AST [Catalytic activity/Vol] 25 U/L Normal <=37 [facility] Comment on above: Order Comment: Order Date: 06/13/24 Order Info: [id number] - CMP Order Info: [id number] - LIPID RESULTS FOR CMP,MIACRE,A1C,LIPID,CBCD GO TO DR. SAENZ RESULTS FOR CBCD,CREATININE,HEP PANELS,LIVER, AND QF GO TO [facility] FAX: Performed By: #### L 500.4100, L100.0100, L501.9985, L500.4050 #### [facility] [address] [place], [address] Bilirubin [Mass/Vol] 0.67 mg/dL Normal 0.00-1.30 [facility] Comment on above: Order Comment: Order Date: 06/13/24 Order Info: [id number] - CMP Order Info: [id number] - LIPID RESULTS FOR CMP,MIACRE,A1C,LIPID,CBCD GO TO DR. SAENZ RESULTS FOR CBCD,CREATININE,HEP PANELS,LIVER, AND QF GO TO [facility] FAX: Performed By: #### L 500.4100, L100.0100, L501.9985, L500.4050 #### [facility] [address] [place], [address] BUN/CRE 13.4 RATIO Normal 10-20 [facility] Comment on above: Order Comment: Order Date: 06/13/24 Order Info: 0786-1 - CMP Order Info: [id number] - LIPID RESULTS FOR CMP,MIACRE,A1C,LIPID,CBCD GO TO DR. SAENZ RESULTS FOR CBCD,CREATININE,HEP PANELS,LIVER, AND QF GO TO [facility] FAX: Performed By: #### L 500.4100, L100.0100, L501.9985, L500.4050 #### [facility] [address] [place], [address] Calcium [Mass/Vol] 9.8 mg/dL Normal 7.6-11.0 [facility] Comment on above: Order Comment: Order Date: 06/13/24 Order Info: [id number]- - CMP Order Info: [id number] - LIPID RESULTS FOR CMP,MIACRE,A1C,LIPID,CBCD GO TO DR. SAENZ RESULTS FOR CBCD,CREATININE,HEP PANELS,LIVER, AND QF GO TO [facility] FAX: Performed By: #### L 500.4100, L100.0100, L501.9985, L500.4050 #### [facility] [address] [place], [address] Chloride [Moles/Vol] 102 mmol/L Normal 98-108 [facility] Comment on above: Order Comment: Order Date: 06/13/24 Order Info: 0786-1 - CMP Order Info: [id number] - LIPID RESULTS FOR CMP,MIACRE,A1C,LIPID,CBCD GO TO DR. SAENZ RESULTS FOR CBCD,CREATININE,HEP PANELS,LIVER, AND QF GO TO [facility] FAX: Performed By: #### L 500.4100, L100.0100, L501.9985, L500.4050 #### [facility] [address] [place], [address] CO2 [Moles/Vol] 26.0 mmol/L Normal 21.0-32.0 [facility] Comment on above: Order Comment: Order Date: 06/13/24 Order Info: 0786-1 - CMP Order Info: [id number] - LIPID RESULTS FOR CMP,MIACRE,A1C,LIPID,CBCD GO TO DR. SAENZ RESULTS FOR CBCD,CREATININE,HEP PANELS,LIVER, AND QF GO TO [facility] FAX: Performed By: #### L 500.4100, L100.0100, L501.9985, L500.4050 #### [facility] [address] [place], [address] Creatinine [Mass/Vol] 1.34 mg/dL High 0.70-1.20 [facility] Comment on above: Order Comment: Order Date: 06/13/24 Order Info: 0786-1 - CMP Order Info: [id number] - LIPID RESULTS FOR CMP,MIACRE,A1C,LIPID,CBCD GO TO DR. SAENZ RESULTS FOR CBCD,CREATININE,HEP PANELS,LIVER, AND QF GO TO [facility] FAX: Performed By: #### L 500.4100, L100.0100, L501.9985, L500.4050 #### [facility] [address] [place], [address] GAP 13 Normal 5-15 [facility] Comment on above: Order Comment: Order Date: 06/13/24 Order Info: 0786-1 - CMP Order Info: [id number] - LIPID RESULTS FOR CMP,MIACRE,A1C,LIPID,CBCD GO TO DR. SAENZ RESULTS FOR CBCD,CREATININE,HEP PANELS,LIVER, AND QF GO TO [facility] FAX: Performed By: #### L 500.4100, L100.0100, L501.9985, L500.4050 #### [facility] [address] [place], [place], [id number] GFR/1.73 sq M.predicted among non-blacks MDRD (S/P/Bld) [Vol rate/Area] 63 mL/min/{1.73_m2} Normal >60 [facility] Comment on above: Order Comment: Order Date: 06/13/24 Order Info: 0786-1 - CMP Order Info: [id number] - LIPID RESULTS FOR CMP,MIACRE,A1C,LIPID,CBCD GO TO DR. SAENZ RESULTS FOR CBCD,CREATININE,HEP PANELS,LIVER, AND QF GO TO [facility] FAX: Result Comment: mL/m in/1.73m2 CKD-EPI Creatinine Equation (2020) Performed By: #### L 500.4100, L100.0100, L501.9985, L500.4050 #### [facility] [address] [place], [address] Globulin (S) [Mass/Vol] 2.9 g/dL Normal 2.2-4.2 [facility] Comment on above: Order Comment: Order Date: 06/13/24 Order Info: 0786-1 - CMP Order Info: [id number] - LIPID RESULTS FOR CMP,MIACRE,A1C,LIPID,CBCD GO TO DR. SAENZ RESULTS FOR CBCD,CREATININE,HEP PANELS,LIVER, AND QF GO TO [facility] FAX: Performed By: #### L 500.4100, L100.0100, L501.9985, L500.4050 #### [facility] [address] [place], [address] Glucose [Mass/Vol] 98 mg/dL Normal 70-99 [facility] Comment on above: Order Comment: Order Date: 06/13/24 Order Info: 0786-1 - CMP Order Info: [id number] - LIPID RESULTS FOR CMP,MIACRE,A1C,LIPID,CBCD GO TO DR. SAENZ RESULTS FOR CBCD,CREATININE,HEP PANELS,LIVER, AND QF GO TO [facility] FAX: Performed By: #### L 500.4100, L100.0100, L501.9985, L500.4050 #### [facility] [address] [place], [address] Potassium [Moles/Vol] 4.5 mmol/L Normal 3.3-5.1 [facility] Comment on above: Order Comment: Order Date: 06/13/24 Order Info: 0786-1 - CMP Order Info: [id number] - LIPID RESULTS FOR CMP,MIACRE,A1C,LIPID,CBCD GO TO DR. SAENZ RESULTS FOR CBCD,CREATININE,HEP PANELS,LIVER, AND QF GO TO [facility] FAX: Performed By: #### L 500.4100, L100.0100, L501.9985, L500.4050 #### [facility] [address] [place], [place], [phone] Sodium [Moles/Vol] 141 mmol/L Normal 133-145 [facility] Comment on above: Order Comment: Order Date: 06/13/24 Order Info: 0786-1 - CMP Order Info: [id number] - LIPID RESULTS FOR CMP,MIACRE,A1C,LIPID,CBCD GO TO DR. SAENZ RESULTS FOR CBCD,CREATININE,HEP PANELS,LIVER, AND QF GO TO [facility] FAX: Performed By: #### L 500.4100, L100.0100, L501.9985, L500.4050 #### [facility] [address] [place], [place], [phone] T PROT 7.3 g/dL Normal 5.9-8.4 [facility] Comment on above: Order Comment: Order Date: 06/13/24 Order Info: 0786-1 - CMP Order Info: [id number] - LIPID RESULTS FOR CMP,MIACRE,A1C,LIPID,CBCD GO TO DR. SAENZ RESULTS FOR CBCD,CREATININE,HEP PANELS,LIVER, AND QF GO TO [facility] FAX: Performed By: #### L 500.4100, L100.0100, L501.9985, L500.4050 #### [facility] [address] [place], [address] Urea nitrogen [Mass/Vol] 18 mg/dL Normal 4-19 [facility] Comment on above: Order Comment: Order Date: 06/13/24 Order Info: 0786-1 - CMP Order Info: [id number] - LIPID RESULTS FOR CMP,MIACRE,A1C,LIPID,CBCD GO TO DR. SAENZ RESULTS FOR CBCD,CREATININE,HEP PANELS,LIVER, AND QF GO TO [facility] FAX: Performed By: #### L 500.4100, L100.0100, L501.9985, L500.4050 #### [facility] [address] [place], [address] Hemoglobin A1con 07-04-2024 HbA1c (Bld) [Mass fraction] 5.3 % Normal <=5.6 [facility] Comment on above: Order Comment: Order Date: 06/13/24 Order Info: [id number] - A1C Result Comment: Norm al < 5.7 % Prediabetic 5.7 - 6.4 % Diabetic >or= 6.5 % Please note range changes. Performed By: #### L 500.4100, L100.0100, L501.9985, L500.4050 #### [facility] [address] [place], [address] Hepatitis B Surface Antibody on 07-04-2024 HEP B Surf Ab Non-Reactive Normal [facility] Comment on above: Order Comment: Order Date: 06/13/24 Order Info: [id number] - CBCD Result Comment: <8.5 mIU/mL: Non-Reactive 8.5<= x <11.5 mIU/mL: Indeterminate >=11.5 mIU/mL: Reactive Non Reactive: Inconsistent with immunity less than <10 mIU/mL Reactive: Consistent with immunity greater than or equal to 10 mIU/mL Performed By: #### L 500.4100, L100.0100, L501.9985, L500.4050 #### [facility] [address] [place], [address] Hepatitis C Antibodyon 07-04 Hepatitis C Ab Non-Reactive Normal Nonreactive [facility] Comment on above: Order Comment: Order Date: 06/13/24 Order Info: 0184-1 - CBCD Result Comment: Reac tive: Presumptive evidence of antibodies to HCV. Follow CDC recommendations for supplemental testing. Non-Reactive: Antibodies to HCV were not detected; does not exclude the possibility of exposure to HCV Reactive Results are presumptive evidence of antibodies to HCV. Follow CDC recommendations for supplemental testing. Order confirmation testing: HCV Quant by PCR testing - HCVPCR #[id number] Non Reactive: < 0.8 Equivocal: >/= 0.8 to < 1.0 Reactive: >/= 1.0 The [facility] requires that a reactive/equivocal HCV antibody result be sent out for confirmation. HCV Quant by PCR testing. Performed By: #### L 500.4100, L100.0100, L501.9985, L500.4050 #### [facility] [address] [place], [address] L3890.6102on 07-04-2024 HEP B Surf Ag Non-Reactive Normal Nonreactive [facility] Comment on above: Order Comment: Order Date: 06/13/24 Order Info: 0184-1 - CBCD Result Comment: Reac tive: Presumptive evidence of HBV. Repeatedly reactive samples must be confirmed using a neutralization test ([employer] HBsAg Confirmatory Test) Non-Reactive: HBsAg not detected; does not exclude the possibility of exposure to HBV Performed By: #### L 500.4100, L100.0100, L501.9985, L500.4050 #### [facility] [address] [place], [address] Lipid Profileon 07-04-2024 CHOL:HDL 5.81 Normal [facility] Comment on above: Order Comment: Order Date: 06/13/24 Order Info: 0786-1 - CMP Order Info: [id number] - LIPID RESULTS FOR CMP,MIACRE,A1C,LIPID,CBCD GO TO DR. SAENZ RESULTS FOR CBCD,CREATININE,HEP PANELS,LIVER, AND QF GO TO [facility] FAX: Performed By: #### L 500.4100, L100.0100, L501.9985, L500.4050 #### [facility] [address] [place], [address] Cholesterol [Mass/Vol] 173 mg/dL Normal <=200 [facility] Comment on above: Order Comment: Order Date: 06/13/24 Order Info: 0786-1 - CMP Order Info: [id number] - LIPID RESULTS FOR CMP,MIACRE,A1C,LIPID,CBCD GO TO DR. SAENZ RESULTS FOR CBCD,CREATININE,HEP PANELS,LIVER, AND QF GO TO [facility] FAX: Result Comment: Chol esterol level, Desirable <200 mg/dL Borderline high cholesterol 200-239 mg/dL High cholesterol >=240 mg/dL Recommendations of the NCEP Adult Treatment Panel for the following risk-cutoff thresholds for the [place] population. Performed By: #### L 500.4100, L100.0100, L501.9985, L500.4050 #### [facility] [address] [place], [address] Cholesterol in HDL [Mass/Vol] 30 mg/dL Low [facility] Comment on above: Order Comment: Order Date: 06/13/24 Order Info: 0786-1 - CMP Order Info: [id number] - LIPID RESULTS FOR CMP,MIACRE,A1C,LIPID,CBCD GO TO DR. SAENZ RESULTS FOR CBCD,CREATININE,HEP PANELS,LIVER, AND QF GO TO [facility] FAX: Result Comment: Justine onal Cholesterol Education Program (NCEP) guidelines: <40 mg/dL: Low HDL-cholesterol (major risk factor for CHD) >= 60 mg/dL: High HDL-cholesterol (negative risk factor for CHD) HDL-cholesterol is affected by a number of factors, e.g. smoking, exercise, hormones, sex and age. Performed By: #### L 500.4100, L100.0100, L501.9985, L500.4050 #### [facility] [address] [place], [address] Cholesterol in LDL [Mass/Vol] 92 mg/dL Normal [facility] Comment on above: Order Comment: Order Date: 06/13/24 Order Info: 0786-1 - CMP Order Info: [id number] - LIPID RESULTS FOR CMP,MIACRE,A1C,LIPID,CBCD GO TO DR. SAENZ RESULTS FOR CBCD,CREATININE,HEP PANELS,LIVER, AND QF GO TO [facility] FAX: Result Comment: Bord uhkjdp=238-934 mg/dL Higher Aqwf=026 mg/dL or greater Performed By: #### L 500.4100, L100.0100, L501.9985, L500.4050 #### [facility] [address] [place], [place], [id number] Cholesterol in VLDL [Mass/Vol] 51 mg/dL High 5-40 [facility] Comment on above: Order Comment: Order Date: 06/13/24 Order Info: 0786-1 - CMP Order Info: [id number] - LIPID RESULTS FOR CMP,MIACRE,A1C,LIPID,CBCD GO TO DR. SAENZ RESULTS FOR CBCD,CREATININE,HEP PANELS,LIVER, AND QF GO TO [facility] FAX: Performed By: #### L 500.4100, L100.0100, L501.9985, L500.4050 #### [facility] [address] [place], [place], [id number] Triglyceride [Mass/Vol] 256 mg/dL High [facility] Comment on above: Order Comment: Order Date: 06/13/24 Order Info: 0786-1 - CMP Order Info: [id number] - LIPID RESULTS FOR CMP,MIACRE,A1C,LIPID,CBCD GO TO DR. SAENZ RESULTS FOR CBCD,CREATININE,HEP PANELS,LIVER, AND QF GO TO [facility] FAX: Result Comment: The drugs N-Acetylcysteine and Metamizole may falsely depress this assay. Normal range: <150 mg/dL Borderline High: 150-199 mg/dL High: 200-499 mg/dL Very High: >500 mg/dL Performed By: #### L 500.4100, L100.0100, L501.9985, L500.4050 #### [facility] [address] [place], [address] Microalb:Creat Ratio,Random URon 07-04-2024 Creatinine [Mass/Vol] 117.00 mg/dL Normal 39.00-259.00 [facility] Comment on above: Performed By: #### L 3100.0460, L3400.8000, L502.0250, L3890.6102, L501.4700, L3890.6202, L3890.6301, L7000.7000 #### [facility] [address] [place], [address] MALB:CREAT UNABLE TO CALCULATE Normal [facility] Comment on above: Performed By: #### L 3100.0460, L3400.8000, L502.0250, L3890.6102, L501.4700, L3890.6202, L3890.6301, L7000.7000 #### [facility] [address] [place], [address] MICROALBUMIN,UR < 12.0 Normal NO RANGE EST. [facility] Comment on above: Performed By: #### L 3100.0460, L3400.8000, L502.0250, L3890.6102, L501.4700, L3890.6202, L3890.6301, L7000.7000 #### [facility] [address] [place], [place], [phone] CBC W/Diff, Automatedon 09-3 0-2023 Absolute Lymph 1.81 X10 3/uL Normal 0.83-4.51 [facility] Comment on above: Order Comment: Order Date: 06/12/23 Order Info: 0184-1 - CBCD Performed By: #### L 100.0100, L501.9985, L500.4050 #### [facility] [address] [place], [address] Absolute Neut 2.2 X10 3/uL Normal 2.0-7.7 [facility] Comment on above: Order Comment: Order Date: 06/12/23 Order Info: 0184-1 - CBCD Performed By: #### L 100.0100, L501.9985, L500.4050 #### [facility] [address] [place], [address] Basophils/100 WBC (Bld) 1.0 % Normal 0-1 [facility] Comment on above: Order Comment: Order Date: 06/12/23 Order Info: 0184-1 - CBCD Performed By: #### L 100.0100, L501.9985, L500.4050 #### [facility] [address] [place], [address] Eosinophils/100 WBC (Bld) 6.7 % High 0-5 [facility] Comment on above: Order Comment: Order Date: 06/12/23 Order Info: 0184-1 - CBCD Performed By: #### L 100.0100, L501.9985, L500.4050 #### [facility] [address] [place], [address] Erythrocyte distribution width (RBC) [Ratio] 11.9 % Normal 11.6-14.6 [facility] Comment on above: Order Comment: Order Date: 06/12/23 Order Info: 0184-1 - CBCD Performed By: #### L 100.0100, L501.9985, L500.4050 #### [facility] [address] [place], [address] Hematocrit (Bld) [Volume fraction] 47.2 % Normal 40-54 [facility] Comment on above: Order Comment: Order Date: 06/12/23 Order Info: 0184-1 - CBCD Performed By: #### L 100.0100, L501.9985, L500.4050 #### [facility] [address] [place], [address] Hemoglobin (Bld) [Mass/Vol] 15.7 g/dL Normal 13.0-16.5 [facility] Comment on above: Order Comment: Order Date: 06/12/23 Order Info: 0184-1 - CBCD Performed By: #### L 100.0100, L501.9985, L500.4050 #### [facility] [address] [place], [address] IG% 0.200 Normal 0.0-0.9 [facility] Comment on above: Order Comment: Order Date: 06/12/23 Order Info: 0184-1 - CBCD Result Comment: IG% - Immature Granulocytes (promyelocytes, myelocytes and metamyelocytes) > 1% indicates that a LEFT SHIFT is Present. Performed By: #### L 100.0100, L501.9985, L500.4050 #### [facility] [address] [place], [address] Lymphocytes/100 WBC (Bld) 34.5 % Normal 19-41 [facility] Comment on above: Order Comment: Order Date: 06/12/23 Order Info: 0184-1 - CBCD Performed By: #### L 100.0100, L501.9985, L500.4050 #### [facility] [address] [place], [address] MCH (RBC) [Entitic mass] 30.7 pg Normal 27.0-32.0 [facility] Comment on above: Order Comment: Order Date: 06/12/23 Order Info: 0184-1 - CBCD Performed By: #### L 100.0100, L501.9985, L500.4050 #### [facility] [address] [place], [address] MCHC (RBC) [Mass/Vol] 33.3 g/dL Normal 32-36 [facility] Comment on above: Order Comment: Order Date: 06/12/23 Order Info: 0184-1 - CBCD Performed By: #### L 100.0100, L501.9985, L500.4050 #### [facility] [address] [place], [address] MCV (RBC) [Entitic vol] 92.4 fL Normal 80-94 [facility] Comment on above: Order Comment: Order Date: 06/12/23 Order Info: 0184-1 - CBCD Performed By: #### L 100.0100, L501.9985, L500.4050 #### [facility] [address] [place], [address] Monocytes/100 WBC (Bld) 15.5 % High 0-10 [facility] Comment on above: Order Comment: Order Date: 06/12/23 Order Info: 0184-1 - CBCD Performed By: #### L 100.0100, L501.9985, L500.4050 #### [facility] [address] [place], [address] Neutrophils/100 WBC (Bld) 42.1 % Low 47-70 [facility] Comment on above: Order Comment: Order Date: 06/12/23 Order Info: 0184-1 - CBCD Performed By: #### L 100.0100, L501.9985, L500.4050 #### [facility] [address] [place], [address] Nucleated RBC (Bld) [#/Vol] 0 10*3/uL Normal 0-5 [facility] Comment on above: Order Comment: Order Date: 06/12/23 Order Info: 0184-1 - CBCD Performed By: #### L 100.0100, L501.9985, L500.4050 #### [facility] [address] [place], [address] Platelet mean volume (Bld) [Entitic vol] 10.7 fL Normal 6.2-12.0 [facility] Comment on above: Order Comment: Order Date: 06/12/23 Order Info: 0184-1 - CBCD Performed By: #### L 100.0100, L501.9985, L500.4050 #### [facility] [address] [place], [address] Platelets (Bld) [#/Vol] 212 10*3/uL Normal 150-450 [facility] Comment on above: Order Comment: Order Date: 06/12/23 Order Info: 0184-1 - CBCD Performed By: #### L 100.0100, L501.9985, L500.4050 #### [facility] [address] [place], [address] RBC (Bld) [#/Vol] 5.11 10*6/uL Normal 4.6-6.2 [facility] Comment on above: Order Comment: Order Date: 06/12/23 Order Info: 0184-1 - CBCD Performed By: #### L 100.0100, L501.9985, L500.4050 #### [facility] [address] [place], [address] RDW SD 41.0 fl Normal 35.1-43.9 [facility] Comment on above: Order Comment: Order Date: 06/12/23 Order Info: 0184-1 - CBCD Performed By: #### L 100.0100, L501.9985, L500.4050 #### [facility] [address] [place], [address] WBC (Bld) [#/Vol] 5.2 10*3/uL Normal 4.4-11.0 [facility] Comment on above: Order Comment: Order Date: 06/12/23 Order Info: 0184-1 - CBCD Performed By: #### L 100.0100, L501.9985, L500.4050 #### [facility] [address] [place], [address] Comprehensive Metabolic Prof [facility] 12-07-2023 Albumin [Mass/Vol] 3.9 g/dL Normal 3.2-5.0 [facility] Comment on above: Order Comment: Order Date: 06/12/23 Order Info: 0786-1 - CMP Performed By: #### L 100.0100, L501.9985, L500.4050 #### [facility] [address] [place], [address] Albumin/Globulin [Mass ratio] 1.1 {ratio} Normal 0.9-2.4 [facility] Comment on above: Order Comment: Order Date: 06/12/23 Order Info: 0786-1 - CMP Performed By: #### L 100.0100, L501.9985, L500.4050 #### [facility] [address] [place], [address] ALK P 41 U/L Low 45-117 [facility] Comment on above: Order Comment: Order Date: 06/12/23 Order Info: 0786-1 - CMP Performed By: #### L 100.0100, L501.9985, L500.4050 #### [facility] [address] [place], [address] ALT [Catalytic activity/Vol] 48 U/L Normal 16-61 [facility] Comment on above: Order Comment: Order Date: 06/12/23 Order Info: 0786-1 - CMP Performed By: #### L 100.0100, L501.9985, L500.4050 #### [facility] [address] [place], [address] AST [Catalytic activity/Vol] 27 U/L Normal 15-37 [facility] Comment on above: Order Comment: Order Date: 06/12/23 Order Info: 0786-1 - CMP Performed By: #### L 100.0100, L501.9985, L500.4050 #### [facility] [address] [place], [address] Bilirubin [Mass/Vol] 1.00 mg/dL Normal 0.20-1.00 [facility] Comment on above: Order Comment: Order Date: 06/12/23 Order Info: 0786-1 - CMP Result Comment: For patients on eltrombopag therapy, use of Dimension Cyclone TBIL is not recommended. Performed By: #### L 100.0100, L501.9985, L500.4050 #### [facility] [address] [place], [address] BUN/CRE 14.0 RATIO Normal 10-20 [facility] Comment on above: Order Comment: Order Date: 06/12/23 Order Info: 0786-1 - CMP Performed By: #### L 100.0100, L501.9985, L500.4050 #### [facility] [address] [place], [address] CA,Total 9.4 mg/dL Normal 8.5-10.1 [facility] Comment on above: Order Comment: Order Date: 06/12/23 Order Info: 0786-1 - CMP Performed By: #### L 100.0100, L501.9985, L500.4050 #### [facility] [address] [place], [address] Chloride [Moles/Vol] 105 mmol/L Normal 98-107 [facility] Comment on above: Order Comment: Order Date: 06/12/23 Order Info: 0786-1 - CMP Performed By: #### L 100.0100, L501.9985, L500.4050 #### [facility] [address] [place], [address] CO2 [Moles/Vol] 28.0 mmol/L Normal 21.0-32.0 [facility] Comment on above: Order Comment: Order Date: 06/12/23 Order Info: 0786-1 - CMP Performed By: #### L 100.0100, L501.9985, L500.4050 #### [facility] [address] [place], [address] Creatinine [Mass/Vol] 1.36 mg/dL High 0.70-1.30 [facility] Comment on above: Order Comment: Order Date: 06/12/23 Order Info: 0786-1 - CMP Result Comment: The validity of the calculated GFR GFRAA in patients over 70 years has not been determined. Clinical correlation is essential. Performed By: #### L 100.0100, L501.9985, L500.4050 #### [facility] [address] [place], [address] EST GFR - AA 71 mL/min Normal >60 [facility] Comment on above: Order Comment: Order Date: 06/12/23 Order Info: 0786-1 - CMP Result Comment: Afri can [place]ian GFR Calc Performed By: #### L 100.0100, L501.9985, L500.4050 #### [facility] [address] [place], [address] GAP 7 Normal 5-15 [facility] Comment on above: Order Comment: Order Date: 06/12/23 Order Info: 0786-1 - CMP Performed By: #### L 100.0100, L501.9985, L500.4050 #### [facility] [address] [place], [address] GFR/1.73 sq M.predicted among non-blacks MDRD (S/P/Bld) [Vol rate/Area] 58 mL/min/{1.73_m2} Low >60 [facility] Comment on above: Order Comment: Order Date: 06/12/23 Order Info: 0786-1 - CMP Result Comment: Non- GFR Calc Performed By: #### L 100.0100, L501.9985, L500.4050 #### [facility] [address] [place], [address] Globulin (S) [Mass/Vol] 3.4 g/dL Normal 2.2-4.2 [facility] Comment on above: Order Comment: Order Date: 06/12/23 Order Info: 0786-1 - CMP Performed By: #### L 100.0100, L501.9985, L500.4050 #### [facility] [address] [place], [address] Glucose [Mass/Vol] 100 mg/dL Normal 74-106 [facility] Comment on above: Order Comment: Order Date: 06/12/23 Order Info: 0786-1 - CMP Result Comment: Fast ing Glucose result from 100 to 125 mg/dL suggests IMPAIRED HOMEOSTASIS per A.D.A. criteria. Performed By: #### L 100.0100, L501.9985, L500.4050 #### [facility] [address] [place], [address] Potassium [Moles/Vol] 4.1 mmol/L Normal 3.5-5.1 [facility] Comment on above: Order Comment: Order Date: 06/12/23 Order Info: 0786-1 - CMP Performed By: #### L 100.0100, L501.9985, L500.4050 #### [facility] [address] [place], [address] Sodium [Moles/Vol] 139 mmol/L Normal 136-145 [facility] Comment on above: Order Comment: Order Date: 06/12/23 Order Info: 0786-1 - CMP Performed By: #### L 100.0100, L501.9985, [id number] #### [facility] [address] [place], [address] T PROT 7.3 g/dL Normal 6.4-8.2 [facility] Comment on above: Order Comment: Order Date: 06/12/23 Order Info: 0786-1 - CMP Performed By: #### L 100.0100, L501.9985, [id number] #### [facility] [address] [place], [address] Urea nitrogen [Mass/Vol] 19 mg/dL High 7-18 [facility] Comment on above: Order Comment: Order Date: 06/12/23 Order Info: 0786-1 - CMP Performed By: #### L 100.0100, L501.9985, [id number] #### [facility] [address] [place], [address] Hemoglobin A1con 12-07-2023 HbA1c (Bld) [Mass fraction] 5.4 % Normal 3.8-5.6 [facility] Comment on above: Order Comment: Order Date: 06/12/23 Order Info: 4548-4 - A1C Result Comment: Norm al < 5.7 % Prediabetic 5.7 - 6.4 % Diabetic >or= 6.5 % Please note range changes. Performed By: #### L 100.0100, L501.9985, [id number] #### [facility] [address] [place], [address] Vitamin D,25 Hydroxyon 12-06 Vitamin D 25-OH 36.0 ng/mL Normal [facility] Comment on above: Order Comment: Order Date: 06/12/23 Order Info: 35139-2 - VITD25 Result Comment: Ashleigh min D 25(OH) Status Range Deficiency <20 ng/mL (50nmol/L) Insufficiency 20 - 30 ng/mL (50 - 75 nmol/L) Sufficiency 30 - 100 ng/mL (75 - 250 nmol/L) Toxicity >100 ng/mL (>250 nmol/L) Performed By: #### L 506.1000 #### [facility] [address] [place], [address] Initial Visit ([facility])on 07-18-2020 Initial Visit (Orthopaedic Surgery) Diagnoses/Problems Assessed Right foot pain (729.5) (M79.671) Peroneal tendinitis of right lower extremity (726.79) (M76.71) Orders Peroneal tendinitis of right lower extremity Start: Meloxicam 15 MG Oral Tablet; TAKE 1 TABLET DAILY SocHx: Non-smoker Tobacco Use Screening; Status:Complete; Done: 18Jul2020 Patient Discussion/Summary Assessment: Right posterior lateral ankle pain, most consistent with peroneal tendinitis Plan: Discussed diagnosis, reviewed further work-up and treatment options with patient. Recommend conservative management. He was fitted for a lace up ankle brace today for support, he was given a prescription for meloxicam to help with pain and potential inflammation of the tendon. He was also given a home exercise program that he will begin. He will follow-up if symptoms not improving with above interventions. Chief Complaint PT HERE FOR RIGHT ACHILLES TENDON PAIN. STATES PAIN FOR THE PAST MONTH. PAIN IS MAINLY AROUND THE OUTSIDE OF THE FOOT AND INTO THE HEEL. PAIN INCREASES WITH WALKING. MINIMAL SWELLING. DOES NOT RECALL INJURY. REFERRED BY SELF. History of Present Illness Patient is a pleasant 50-year-old male presenting for evaluation of right lateral ankle pain as well as some mild foot pain. Onset of symptoms approximately 1 month ago, he denies any known injury or inciting incident. He has having pain mostly over the posterior lateral aspect of his ankle, on occasion he will have some pain over the lateral aspect of his plantar heel. He says that he has minimal pain at rest, he says that after getting up and walking for a bit he will get some discomfort over the lateral aspect of his ankle, persists until he is able to rest. He denies any significant pain with first few steps in the morning getting out of bed. He denies any swelling of the ankle. He has been treating with some home exercises that he found for plantar fasciitis, does not seem to be helping. He is not taking any medications regularly for pain. 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 They are planning a camping/hiking trip at the end of the month that he is hoping to be better for. Review of Systems The patient's past medical, surgical, family, and social history as well as allergies and medications were reviewed with the patient and updated in the chart Past Medical History Problems History of Blood clotting disorder (286.9) (D68.9) History of psoriatic arthritis (V13.4) (Z87.2) Surgical History Problems History of Hand surgery Family History Father Family history of cardiac disorder (V17.49) (Z82.49) Social History Problems No advance directives (V49.89) (Z78.9) Non-smoker (V49.89) (Z78.9) Allergies Amoxicillin TABS Recorded By: Sue Alfonso; 07/18/2020 11:48:19 AM Current Meds Medication NameInstruction Aspirin EC 325 MG Oral Tablet Delayed ReleaseTake 1 tablet daily Atenolol 50 MG Oral TabletTAKE 1 TABLET DAILY. Folic Acid 1 MG Oral TabletTAKE 1 TABLET DAILY. Folic Acid TABS Vitamin D CAPSTAKE 1 CAPSULE Daily Vitals Vital Signs Recorded: 18Jul2020 11:41AM Dygnlhgshjm13 F Mdrjpaap502 Epemxreqd78 Height5 ft 11 in Ckcjkx040 lb BMI Hmxibsxfws38.1 BSA Calculated2.38 Tobacco Useb) No Fall Screeninga) No falls within the last year Physical Exam General/Constitutional : well appearing, no distress, appears stated age HEENT: sclera clear Respiratory: non labored breathing Vascular: No edema, swelling or tenderness, except as noted in detailed exam. Integumentary: No impressive skin lesions present, except as noted in detailed exam. Neurological: Alert and oriented Psychological: Normal mood and affect. Musculoskeletal: Normal, except as noted in detailed exam and in HPI. Normal gait, unassisted Right ankle: Normal appearance, no soft tissue swelling or ecchymosis is present. Most focally tender to palpation posterior to the lateral malleolus near the peroneal tendons, less tender distally along the lateral foot. Nontender at plantar fascial origin. Patient has relatively preserved range of motion at the ankle in all directions. Exacerbation of lateral pain is most notable with passive ankle inversion. No significant motor deficits are present mild discomfort with resisted ankle eversion. 2+ pedal pulses are present, sensation intact to light touch, no ankle instability is present Results/Data No imaging today Signatures Electronically signed by : Rigoberto Perez MD; Jul 18 2020 12:24PM EST (Author) Normal [facility] Tobacco Screening.on 021 Fall risk assessment a) No falls within the last year [facility] [employer] [address] Work Phone: Tobacco Screening. b) No [facility] [employer] [address] Work Phone: Otheron 04-11-2020 No acute cardiopulmonary abnormality. Definitive significant pulmonary nodularity is not identified. Clinical and historical correlation would determine need for additional evaluation. RWA/pji Workstation ID: [id number] [facility] EXAMINATION: XR CHES T AP/PA AND LAT HISTORY: H/O lung nodules. Multiple lung nodules R91.8 (ICD-10-CM). COMPARISON: No prior studies are present for comparison. TECHNIQUE: PA and lateral views. FINDINGS: There is satisfactory heart and mediastinal appearance. Central vasculature is symmetrical. The lung shelby are well expanded without acute infiltration, consolidation, edema, or effusion. There are mild parahilar midlung small areas of nodularity which are most likely granulomatous in nature. No dominant lung nodule or mass is seen. Clinical and historical correlation would determine the need for additional CT evaluation for history of lung nodules. [facility], Rad In [facility] - 04/11/2020 10:59 AM EST EXAMINATION: XR CHEST AP/PA AND LAT HISTORY: H/O lung nodules. Multiple lung nodules R91.8 (ICD-10-CM). COMPARISON: No prior studies are present for comparison. TECHNIQUE: PA and lateral views. FINDINGS: There is satisfactory heart and mediastinal appearance. Central vasculature is symmetrical. The lung shelby are well expanded without acute infiltration, consolidation, edema, or effusion. There are mild parahilar midlung small areas of nodularity which are most likely granulomatous in nature. No dominant lung nodule or mass is seen. Clinical and historical correlation would determine the need for additional CT evaluation for history of lung nodules. IMPRESSION: No acute cardiopulmonary abnormality. Definitive significant pulmonary nodularity is not identified. Clinical and historical correlation would determine need for additional evaluation. RWA/pji Workstation ID: [id number] [facility] CRP, Inflammationon 01-05-20 20 CRP [Mass/Vol] 6.0 mg/L <=10.0 [facility] Otheron 01-05-2020 No changes of seronegative spondyloarthropathy or acute diagnostic abnormality. Workstation ID: [id number] [facility] EXAMINATION: XR PELV IS 1 VIEW (STANDARD), 01/05/2020: HISTORY: Hernández view Dx: Psoriatic arthritis (HCC) L40.50 (ICD-10-CM) COMPARISON: None. FINDINGS: No acute or intrinsic osseous, articular or soft tissue abnormality is seen. No changes of seronegative spondyloarthropathy are seen. There appear to be bilateral vasectomy clips. [facility], Rad In [facility] - 01/05/2020 4:18 PM EDT EXAMINATION: XR PELVIS 1 VIEW (STANDARD), 01/05/2020: HISTORY: Hernández view Dx: Psoriatic arthritis (HCC) L40.50 (ICD-10-CM) COMPARISON: None. FINDINGS: No acute or intrinsic osseous, articular or soft tissue abnormality is seen. No changes of seronegative spondyloarthropathy are seen. There appear to be bilateral vasectomy clips. IMPRESSION: No changes of seronegative spondyloarthropathy or acute diagnostic abnormality. Workstation ID: [id number] [facility] Interpretation and review of laboratory results Normal [facility] Sedimentation Rateon 020 ESR (Bld) [Velocity] 8 mm/h [facility] Interpretation and review of laboratory results Normal [facility] Uric Acidon 01-05-2020 Urate [Mass/Vol] 8.0 mg/dL 3.4 - 8.5 mg/dL [facility] ALBUMIN, URINE SPOTon 2018 ALBUMIN,URINE 11.3 mg/L Normal Not Established [facility] Comment on above: Performed By: #### A LBSP #### [address] [address] ALBUMIN/CREAT RATIO 7.6 ug/mg sample puller Normal 0.0 - 30.0 [facility] Comment on above: Performed By: #### A LBSP #### [address] [address] CREATININE,URINE 149.0 mg/dL Normal 20.0 - 370.0 [facility] Comment on above: Performed By: #### A LBSP #### [address] [address] C-REACTIVE PROTEINon 019 CRP [Mass/Vol] 0.33 mg/dL Normal [facility] Comment on above: Result Comment: REF VALUE < 1.00 Performed By: #### C RP #### [address] [address] CBC AND DIFFERENTIALon 03-08 Basophils (Bld) [#/Vol] 0.00 10*3/uL Normal 0.00 - 0.10 [facility] Comment on above: Performed By: #### C BCDF #### [address] [address] Basophils/100 WBC (Bld) 0.4 % Normal 0.0 - 2.0 [facility] Comment on above: Performed By: #### C BCDF #### [address] [address] Eosinophils (Bld) [#/Vol] 0.10 10*3/uL Normal 0.00 - 0.70 [facility] Comment on above: Performed By: #### C BCDF #### [address] [address] Eosinophils/100 WBC (Bld) 2.9 % Normal 0.0 - 6.0 [facility] Comment on above: Performed By: #### C BCDF #### [address] [address] Erythrocyte distribution width (RBC) [Ratio] 12.5 % Normal 11.5 - 14.5 [facility] Comment on above: Performed By: #### C BCDF #### [address] [address] Hematocrit (Bld) [Volume fraction] 47.0 % Normal 41.0 - 52.0 [facility] Comment on above: Performed By: #### C BCDF #### [address] [address] Hemoglobin (Bld) [Mass/Vol] 16.0 g/dL Normal 13.5 - 17.5 [facility] Comment on above: Performed By: #### C BCDF #### [address] [address] Lymphocytes (Bld) [#/Vol] 2.00 10*3/uL Normal 1.20 - 4.80 [facility] Comment on above: Performed By: #### C BCDF #### [address] [address] Lymphocytes/100 WBC (Bld) 37.8 % Normal 13.0 - 44.0 [facility] Comment on above: Performed By: #### C BCDF #### [address] [address] MCHC (RBC) [Mass/Vol] 34.0 g/dL Normal 32.0 - 36.0 [facility] Comment on above: Performed By: #### C BCDF #### [address] [address] MCV (RBC) [Entitic vol] 91 fL Normal 80 - 100 [facility] Comment on above: Performed By: #### C BCDF #### [address] [address] Monocytes (Bld) [#/Vol] 0.70 10*3/uL Normal 0.10 - 1.00 [facility] Comment on above: Performed By: #### C BCDF #### [address] [address] Monocytes/100 WBC (Bld) 13.5 % Normal 2.0 - 10.0 [facility] Comment on above: Performed By: #### C BCDF #### [address] [address] Neutrophils (Bld) [#/Vol] 2.40 10*3/uL Normal 1.20 - 7.70 [facility] Comment on above: Performed By: #### C BCDF #### [address] [address] Neutrophils/100 WBC (Bld) 45.4 % Normal 40.0 - 80.0 [facility] Comment on above: Performed By: #### C BCDF #### [address] [address] Nucleated RBC/100 WBC (Bld) [Ratio] 0.5 /100 WBC Normal [facility] Comment on above: Performed By: #### C BCDF #### [address] [address] Platelets (Bld) [#/Vol] 226 10*3/uL Normal 150 - 450 [facility] Comment on above: Performed By: #### C BCDF #### [address] [address] RBC (Bld) [#/Vol] 5.15 x10E12/L Normal 4.50 - 5.90 [facility] Comment on above: Performed By: #### C BCDF #### [address] [address] WBC (Bld) [#/Vol] 5.2 10*3/uL Normal 4.4 - 11.3 [facility] Comment on above: Performed By: #### C BCDF #### [address] [address] COMPREHENSIVE PANELon 2018 Albumin [Mass/Vol] 4.7 g/dL Normal 3.4 - 5.0 [facility] Comment on above: Performed By: #### C MP #### [address] [address] ALP [Catalytic activity/Vol] 39 U/L Normal 33 - 120 [facility] Comment on above: Performed By: #### C MP #### [address] [address] ALT [Catalytic activity/Vol] 29 U/L Normal 10 - 52 [facility] Comment on above: Result Comment: Guerita ents treated with Sulfasalazine may generate falsely decreased results for ALT. Performed By: #### C MP #### [place] [address] Anion gap [Moles/Vol] 10 mmol/L Normal 10 - 20 [facility] Comment on above: Performed By: #### C MP #### [place] [address] AST [Catalytic activity/Vol] 23 U/L Normal 9 - 39 [facility] Comment on above: Performed By: #### C MP #### [place] [address] Bilirubin [Mass/Vol] 0.6 mg/dL Normal 0.0 - 1.2 [facility] Comment on above: Performed By: #### C MP #### [place] [address] Calcium [Mass/Vol] 9.2 mg/dL Normal 8.6 - 10.3 [facility] Comment on above: Performed By: #### C MP #### [place] [id number] Chloride [Moles/Vol] 103 mmol/L Normal 98 - 107 [facility] Comment on above: Performed By: #### C MP #### [place] [id number] Creatinine [Mass/Vol] 1.41 mg/dL High 0.50 - 1.30 [facility] Comment on above: Performed By: #### C MP #### [place] [id number] GFR- AM. 65 mL/min/1.73m2 Normal >60 [facility] Comment on above: Result Comment: CALC ULATIONS OF ESTIMATED GFR ARE PERFORMED USING THE MDRD STUDY EQUATION FOR THE IDMS-TRACEABLE CREATININE METHODS. CLIN CHEM 2007;53:766-72 Performed By: #### C MP #### [address] [address] GFR-NON AM. 54 mL/min/1.73m2 Abnormal >60 [facility] Comment on above: Performed By: #### C MP #### [address] [address] Glucose [Mass/Vol] 105 mg/dL High 74 - 99 [facility] Comment on above: Performed By: #### C MP #### [address] [address] HCO3 (Bld) [Moles/Vol] 31 mmol/L Normal 21 - 32 [facility] Comment on above: Performed By: #### C MP #### [address] [address] Potassium [Moles/Vol] 4.2 mmol/L Normal 3.5 - 5.3 [facility] Comment on above: Performed By: #### C MP #### [address] [address] Protein [Mass/Vol] 7.0 g/dL Normal 6.4 - 8.2 [facility] Comment on above: Performed By: #### C MP #### [address] [address] Sodium [Moles/Vol] 140 mmol/L Normal 136 - 145 [facility] Comment on above: Performed By: #### C MP #### [address] [address] Urea nitrogen [Mass/Vol] 16 mg/dL Normal 6 - 23 [facility] Comment on above: Performed By: #### C MP #### [address] [address] LIPID PANEL (CORONARY RISK 2 )on 03-08-2019 Cholesterol [Mass/Vol] 175 mg/dL Normal 0 - 199 [facility] Comment on above: Result Comment: . AGE DESIRABLE BORDERLINE HIGH HIGH 0-19 Y 0 - 169 170 - 199 >/= 200 20-24 Y 0 - 189 190 - 224 >/= 225 >24 Y 0 - 199 200 - 239 >/= 240 All ranges are based on fasting samples. Specific therapeutic targets will vary based on patient-specific cardiac risk. . Pediatric guidelines reference:Pediatrics 2011, 128(S5). Adult guidelines reference: NCEP ATPIII Guidelines, JERAD 2001, 258:2486-97 . Venipuncture immediately after or during the administration of Metamizole may lead to falsely low results. Testing should be performed immediately prior to Metamizole dosing. Performed By: #### L IPID #### [address] [address] Cholesterol in HDL [Mass/Vol] 29.0 mg/dL Abnormal [facility] Comment on above: Result Comment: . AGE VERY LOW LOW NORMAL HIGH 0-19 Y < 35 < 40 40-45 ---- 20-24 Y ---- < 40 >45 ---- >24 Y ---- < 40 40-60 >60 . Performed By: #### L IPID #### [address] [address] Cholesterol in LDL [Mass/Vol] - Normal 0 - 99 [facility] Comment on above: Result Comment: . NEAR BORD AGE DESIRABLE OPTIMAL HIGH HIGH VERY HIGH 0-19 Y 0 - 109 --- 110-129 >/= 130 ---- 20-24 Y 0 - 119 --- 120-159 >/= 160 ---- >24 Y 0 - 99 100-129 130-159 160-189 >/=190 . THE CALCULATION OF LDL AND VLDL ARE INACCURATE WHEN TRIGLYCERIDES ARE GREATER THAN 400 MG/DL OR WHEN THE PATIENT IS NON-FASTING. IF LDL MEASUREMENT IS NECESSARY CONTACT THE TESTING LABORATORY FOR AN ALTERNATIVE LDL ASSAY. Performed By: #### L IPID #### [address] [address] Cholesterol in VLDL [Mass/Vol] SEE COMMENT Normal 0 - 40 [facility] Comment on above: Result Comment: Unab le to calculate VLDL. Performed By: #### L IPID #### [address] [address] Cholesterol.total/C holesterol in HDL [Mass ratio] 6.0 {ratio} Abnormal [facility] Comment on above: Result Comment: REF VALUES DESIRABLE < 3.4 HIGH RISK > 5.0 Performed By: #### L IPID #### [address] [address] NON-HDL CHOLESTEROL 146 mg/dL Normal [facility] Comment on above: Result Comment: AGE DESIRABLE BORDERLINE HIGH HIGH VERY HIGH 0-19 Y 0 - 119 120 - 144 >/= 145 >/= 160 20-24 Y 0 - 149 150 - 189 >/= 190 ---- >24 Y 30 MG/DL ABOVE LDL CHOLESTEROL GOAL . Performed By: #### L IPID #### [address] [address] Triglyceride [Mass/Vol] 428 mg/dL High 0 - 149 [facility] Comment on above: Result Comment: . AGE DESIRABLE BORDERLINE HIGH HIGH VERY HIGH 0 D-90 D 19 - 174 ---- ---- ---- 91 D- 9 Y 0 - 74 75 - 99 >/= 100 ---- 10-19 Y 0 - 89 90 - 129 >/= 130 ---- 20-24 Y 0 - 114 115 - 149 >/= 150 ---- >24 Y 0 - 149 150 - 199 200- 499 >/= 500 . Venipuncture immediately after or during the administration of Metamizole may lead to falsely low results. Testing should be performed immediately prior to Metamizole dosing. Performed By: #### L IPID #### [address] [address] SEDIMENTATION RATE, ERYTHROC YTEon 03-08-2019 SEDIMENTATION RATE, ERYTHROCYTE 6 mm/h Normal 0 - 15 [facility] Comment on above: Performed By: #### E SRWS #### [address] [address] TSHon 03-08-2019 TSH Qn 3.12 m[IU]/L Normal 0.44 - 3.98 [facility] Comment on above: Result Comment: TSH testing is performed using different testing methodology at [facility] than at other [facility]. Direct result comparisons should only be made within the same method. Performed By: #### T SH2 #### [place] [address] [place] [address] CBC AND DIFFERENTIALon 01-14 Basophils Auto #/vol (Bld) 0.0 10*3/uL Invalid Interpretation Code [facility] Basophils/100 WBC Auto (Bld) 0.6 % Invalid Interpretation Code [facility] Eosinophils Auto #/vol (Bld) 0.2 10*3/uL Invalid Interpretation Code [facility] Eosinophils/100 WBC Auto (Bld) 2.8 % Invalid Interpretation Code [facility] Erythrocyte distribution width Auto Ratio (RBC) 12.5 % Invalid Interpretation Code 10 - 14.3 % [facility] Hematocrit Auto Volume Fraction (Bld) 49.5 % High 37.9 - 49.2 % [facility] Hemoglobin mass conc (Bld) 16.8 g/dL Invalid Interpretation Code 12.9 - 16.9 g/dL [facility] Interpretation and review of laboratory results Abnormal Invalid Interpretation Code [facility] Lymphocytes Auto #/vol (Bld) 2.1 10*3/uL Invalid Interpretation Code [facility] Lymphocytes/100 WBC Auto (Bld) 31.3 % Invalid Interpretation Code [facility] MCH Auto Entitic mass (RBC) 30.8 pg Invalid Interpretation Code 27.7 - 34.6 pg [facility] MCHC Auto mass conc (RBC) 33.9 g/dL Invalid Interpretation Code 32.9 - 35.5 g/dL [facility] MCV Auto Entitic volume (RBC) 90.8 fL Invalid Interpretation Code [facility] Monocytes Auto #/vol (Bld) 0.9 10*3/uL High [facility] Monocytes/100 WBC Auto (Bld) 13.7 % Invalid Interpretation Code [facility] Neutrophils Auto #/vol (Bld) 3.4 10*3/uL Invalid Interpretation Code [facility] Platelet mean volume Auto Entitic volume (Bld) 9.1 fL Invalid Interpretation Code [facility] Platelets Auto #/vol (Bld) 267 10*3/uL Invalid Interpretation Code [facility] RBC Auto #/vol (Bld) 5.45 10*6/uL Invalid Interpretation Code [facility] Segmented Neut 51.6 % Invalid Interpretation Code [facility] WBC Auto #/vol (Bld) 6.6 10*3/uL Invalid Interpretation Code [facility] CBC with Diffon 01-14-2018 Basophils Auto #/vol (Bld) 0.0 K/mcL Normal 0-0.2 [facility] Comment on above: Performed By: #### S EDR, CBCDIF, CRPQT ####Unless otherwise noted, all testing performed by [address] [phone]: [id number] Director: Alen Alva M.D. Basophils/100 WBC Auto (Bld) 0.6 % Normal [facility] Comment on above: Performed By: #### S EDR, CBCDIF, CRPQT ####Unless otherwise noted, all testing performed by [address] [phone]: [id number] Director: Alen Alva M.D. Eosinophils Auto #/vol (Bld) 0.2 K/mcL Normal 0-0.5 [facility] Comment on above: Performed By: #### S EDR, CBCDIF, CRPQT ####Unless otherwise noted, all testing performed by [address] [phone]: [id number] Director: Alen Alva M.D. Eosinophils/100 WBC Auto (Bld) 2.8 % Normal [facility] Comment on above: Performed By: #### S EDR, CBCDIF, CRPQT ####Unless otherwise noted, all testing performed by [address] [phone]: [id number] Director: Alen Alva M.D. Erythrocyte distribution width Auto Ratio (RBC) 12.5 % Normal 10-14.3 [facility] Comment on above: Performed By: #### S EDR, CBCDIF, CRPQT ####Unless otherwise noted, all testing performed by [address] [phone]: [id number] Director: Alen Alva M.D. Hematocrit Auto Volume Fraction (Bld) 49.5 % High 37.9-49.2 [facility] Comment on above: Performed By: #### S EDR, CBCDIF, CRPQT ####Unless otherwise noted, all testing performed by [address] [phone]: [id number] Director: Alen Alva M.D. Hemoglobin mass conc (Bld) 16.8 g/dL Normal 12.9-16.9 [facility] Comment on above: Performed By: #### S EDR, CBCDIF, CRPQT ####Unless otherwise noted, all testing performed by [address] [phone]: [id number] Director: Alen Alva M.D. Lymphocytes Auto #/vol (Bld) 2.1 K/mcL Normal 0.9-3.6 [facility] Comment on above: Performed By: #### S EDR, CBCDIF, CRPQT ####Unless otherwise noted, all testing performed by [address] [phone]: [id number] Director: Alen Alva M.D. Lymphocytes/100 WBC Auto (Bld) 31.3 % Normal [facility] Comment on above: Performed By: #### S EDR, CBCDIF, CRPQT ####Unless otherwise noted, all testing performed by [address] [phone]: [id number] Director: Alen Alva M.D. MCH Auto Entitic mass (RBC) 30.8 pg Normal 27.7-34.6 [facility] Comment on above: Performed By: #### S EDR, CBCDIF, CRPQT ####Unless otherwise noted, all testing performed by [place] [phone]: [id number] Director: Alen Alva M.D. MCHC Auto mass conc (RBC) 33.9 g/dL Normal 32.9-35.5 [facility] Comment on above: Performed By: #### S EDR, CBCDIF, CRPQT ####Unless otherwise noted, all testing performed by [place] [phone]: [id number] Director: Alen Alva M.D. MCV Auto Entitic volume (RBC) 90.8 fL Normal 82.8-99.3 [facility] Comment on above: Performed By: #### S EDR, CBCDIF, CRPQT ####Unless otherwise noted, all testing performed by [address] [phone]: [id number] Director: Alen Alva M.D. Monocytes Auto #/vol (Bld) 0.9 K/mcL High 0.2-0.6 [facility] Comment on above: Performed By: #### S EDR, CBCDIF, CRPQT ####Unless otherwise noted, all testing performed by [place] [phone]: [id number] Director: Alen Alva M.D. Monocytes/100 WBC Auto (Bld) 13.7 % Normal [facility] Comment on above: Performed By: #### S EDR, CBCDIF, CRPQT ####Unless otherwise noted, all testing performed by [address]CLIA: [id number] Director: Alen Alva M.D. Neutrophils Auto #/vol (Bld) 3.4 K/mcL Normal 1.4-6.8 [facility] Comment on above: Performed By: #### S EDR, CBCDIF, CRPQT ####Unless otherwise noted, all testing performed by [address]CLIA: [id number] Director: Alen Alva M.D. Platelet mean volume Auto Entitic volume (Bld) 9.1 fL Normal 6.6-10.8 [facility] Comment on above: Performed By: #### S EDR, CBCDIF, CRPQT ####Unless otherwise noted, all testing performed by [address]CLIA: [id number] Director: Alen Alva M.D. Platelets Auto #/vol (Bld) 267 K/mcL Normal 139-354 [facility] Comment on above: Performed By: #### S EDR, CBCDIF, CRPQT ####Unless otherwise noted, all testing performed by [address] [phone]: [id number] Director: Alen Alva M.D. RBC Auto #/vol (Bld) 5.45 M/mcL Normal 4.0-5.5 [facility] Comment on above: Performed By: #### S EDR, CBCDIF, CRPQT ####Unless otherwise noted, all testing performed by [address] [phone]: [id number] Director: Alen Alva M.D. Segmented Neut % 51.6 % Normal [facility] Comment on above: Performed By: #### S EDR, CBCDIF, CRPQT ####Unless otherwise noted, all testing performed by [address] [phone]: [id number] Director: Alen Alva M.D. WBC Auto #/vol (Bld) 6.6 K/mcL Normal 3.6-10.4 [facility] Comment on above: Performed By: #### S EDR, CBCDIF, CRPQT ####Unless otherwise noted, all testing performed by [address] [id number]: [id number] Director: Alen Alva M.D. CRP, C-Reactive Proteinon Protein mass conc g/dL Normal 0.0-10.0 [facility] Comment on above: Performed By: #### S EDR, CBCDIF, CRPQT ####Unless otherwise noted, all testing performed by [address] [id number]: [id number] Director: Alen Alva M.D. CRP - Inflammation < 2.9 Invalid Interpretation Code 0 - 10 mg/L [facility] Sed Rateon 01-14-2018 Sed Rate 3 MM/hr. Normal 0-15 [facility] Comment on above: Performed By: #### S EDR, CBCDIF, CRPQT ####Unless otherwise noted, all testing performed by [address] [id number]: [id number] Director: Alen Alva M.D. Sedimentation Rateon 018 Sed Rate 3 Invalid Interpretation Code [facility] Auto Diffon 09-19-2017 Basophils Auto #/vol (Bld) 0.0 E3/mcL Normal 0.0-0.2 [facility] Comment on above: Order Comment: Order Added by Discern Expert. Performed By: #### 2 [id number] ####JOSE ARMANDO MoseleyOctPlgx7172 [place] [address] Basophils/100 WBC Auto (Bld) 0.3 % Normal 0.0-2.0 [facility] Comment on above: Order Comment: Order Added by Discern Expert. Performed By: #### 2 [id number] ####JOSE ARMANDO MoseleyYepBzhi1019 [place] [address] Eos Absolute 0.1 E3/mcL Normal 0.0-0.7 [facility] Comment on above: Order Comment: Order Added by Discern Expert. Performed By: #### 2 [id number] ####JOSE ARMANDO MoseleyFxlRwvb9357 [place] [address] Eosinophils/100 leukocytes 0.7 % Normal 0.0-11.0 [facility] Comment on above: Order Comment: Order Added by Discern Expert. Performed By: #### 2 [id number] ####JOSE ARMANDO MoseleyBupWxuf1451 [place] [address] Lymphocytes 1.1 E3/mcL Low 1.2-3.4 [facility] Comment on above: Order Comment: Order Added by Discern Expert. Performed By: #### 2 [id number] ####JOSE ARMANDO Oliviero[address]25 [place] [address] Lymphocytes/100 leukocytes 10.0 % Low 20.0-55.0 [facility] Comment on above: Order Comment: Order Added by Discern Expert. Performed By: #### 2 [id number] ####JOSE ARMANDO Oliviero[address] [place] [address] [place] Absolute 0.8 E3/mcL High 0.0-0.7 [facility] Comment on above: Order Comment: Order Added by Discern Expert. Performed By: #### 2 [id number] ####JOSE ARMANDO Oliviero[address] [place] [address] Monocytes/100 leukocytes 7.4 % Normal 0.0-10.0 [facility] Comment on above: Order Comment: Order Added by Discern Expert. Performed By: #### 2 [id number] ####JOSE ARMANDO MoseleyMzfKwuh7435 [place] [address] Neutro Absolute 8.9 E3/mcL High 1.4-6.5 [facility] Comment on above: Order Comment: Order Added by Discern Expert. Performed By: #### 2 [id number] ####JOSE ARMANDO MoseleyCjyFjay4532 [place] [address] Neutro Auto 81.6 % High 37.0-75.0 [facility] Comment on above: Order Comment: Order Added by Discern Expert. Performed By: #### 2 [id number] ####JOSE ARMANDO MoseleySnkBlsm0627 [place] [address] BMPon 09-19-2017 BUN/Creatinine Ratio 11.9 ratio Normal 5.4-30.0 [facility] Comment on above: Performed By: #### 2 [id number] ####JOSE ARMANDO MoseleyXvdVcuh9702 [place] [address] Calcium 9.2 mg/dL Normal 8.4-10.2 [facility] Comment on above: Performed By: #### 2 [id number] ####JOSE ARMANDO MoseleyBibHuqe5417 [place] [address] Chloride 103 mmol/L Normal 98-107 [facility] Comment on above: Performed By: #### 2 [id number] ####JOSE ARMANDO Chun[address] [place] [address] CO2 25.5 mmol/L Normal 24.0-30.0 [facility] Comment on above: Performed By: #### 2 [id number] ####JOSE ARMANDO UsfHddh6058 [place] [address] Creatinine 1.6 mg/dL High 0.6-1.3 [facility] Comment on above: Performed By: #### 2 [id number] ####JOSE ARMANDO NuoRrdt5153 [place] [address] Glucose mass conc 94 mg/dL Normal 70-99 [facility] Comment on above: Performed By: #### 2 [id number] ####JOSE ARMANDO ZkgRvoy0143 [place] [address] Potassium molar conc 3.8 mmol/L Normal 3.5-5.1 [facility] Comment on above: Performed By: #### 2 [id number] ####JOSE ARMANDO OcdOhjs9937 [place] [address] Sodium 141 mmol/L Normal 136-145 [facility] Comment on above: Performed By: #### 2 [id number] ####JOSE ARMANDO MoseleyWmiNgcc1221 [place] [address] Urea nitrogen 19 mg/dL High 7-18 [facility] Comment on above: Performed By: #### 2 [id number] ####JOSE ARMANDO JouAvtz8796 [place] [address] CBC w/ Auto Diffon 8 Erythrocyte distribution width Auto Ratio (RBC) 12.4 % Normal 11.5-14.5 [facility] Comment on above: Performed By: #### 2 [id number] ####JOSE ARMANDO MoseleyAfyWhhi7827 [place] [address] Erythrocytes (RBC) 5.36 E6/mcL Normal 3.90-6.[address] [facility] Comment on above: Performed By: #### 2 [id number] ####JOSE ARMANDO LjeTqwg5974 [place] [address] Hematocrit (HCT) 48.8 % Normal 42.0-52.[address] [facility] Comment on above: Performed By: #### 2 [id number] ####JOSE ARMANDO [address]iero[address] [place] [address] Hemoglobin mass conc (Bld) 16.3 g/dL Normal 13.5-18.0 [facility] Comment on above: Performed By: #### 2 [id number] ####JOSE ARMANDO CdsWloz8882 [place] [address] MCH 30.5 pg Normal 27.0-31.0 [facility] Comment on above: Performed By: #### 2 [id number] ####JOSE ARMANDO Oliviero[address] [place] [address] MCHC mass conc (RBC) 33.5 g/dL Normal 33.0-37.0 [facility] Comment on above: Performed By: #### 2 [id number] ####JOSE ARMANDO [address]iero[address] [place] [address] MCV 90.9 fL Normal 78.0-100.0 [facility] Comment on above: Performed By: #### 2 [id number] ####JOSE ARMANDO Oliviero[address] [place] [address] Platelet mean volume (PMV) 8.5 fL Normal 7.4-11.0 [facility] Comment on above: Performed By: #### 2 [id number] ####JOSE ARMANDO [address]iero[address] [place] [address] Platelets 190 E3/mcL Normal 130-400 [facility] Comment on above: Performed By: #### 2 [id number] ####JOSE ARMANDO MoseleyUifSvdq1902 [place] [address] WBC (Leukocytes) 10.9 E3/mcL Normal 3.6-11.0 [facility] Comment on above: Performed By: #### 2 [id number] ####JOSE ARMANDO MoseleyPzdDawy9737 [place] [address] CT Abdomen/Pelvis w/o Contra ston 09-19-2017 CT Abdomen/Pelvis w/o Contrast Exam Date/Time:09/19/2017 14:11 EDTReason for Exam:PainReportSTUDY:C T Abdomen/Pelvis w/o Contrast; 09/19/2017 2:11 pmINDICATION:47 y/o M with Pain.COMPARISON:CCESSION NUMBER(S):[id number] CLINICIAN:Constantino Flynn:Axel reilly CT was performed without intravenous contrast. Reformats were performed in the coronal and sagittal plane.FINDINGS:LIMITAT IONS/LINES:Evaluation of the abdominal viscera is limited without intravenous contrastLUNG BASES:There is mild right lower lobe atelectasis.PERITONEUM :No free air or free fluid.LIVER:There is diffusely decreased attenuation of the liver consistent with hepatic steatosis. There is fatty scarring adjacent to the gallbladder fossa.BILE DUCTS:No intra or extrahepatic biliary ductal dilation.GALLBLADDER:U nremarkable.SPLEEN:Unr emarkable.PANCREAS:Unr emarkable.KIDNEYS/ADRE NALS:Exam Date/Time:09/19/2017 14:11 EDTReportBilateral adrenals are within normal limits. Bilateral kidneys are symmetric in size. No urolithiasis or hydroureteronephrosis. BOWEL:Bowel loops are normal in caliber without evidence of obstruction. There is mild colonic diverticulosis without CT evidence of acute diverticulitis.Appendi x: unremarkableBLADDER:Th ere is a 3 mm calculus within the left side of the urinary bladder. Urinary bladder is otherwise unremarkable.REPRODUCT GABY ORGANS:Unremarkable.GR EAT VESSELS/RETROPERITONEU M:Unremarkable.BONES:M ild multilevel degenerative changes are noted in the spine. No suspicious osseous lesion.SOFT TISSUE/OTHER:Unremarka ble.IMPRESSION:3 mm calculus within the left-sided urinary bladder likely representing recently passed calculus. There is no left-sided hydroureteronephrosis. Hepatic steatosis. FINAL REPORT Dictated: 09/19/2017 2:24 pm Tracie Harrison MDigned (Electronic Signature): 09/19/2017 2:24 pmSigned by: Tristin Harrison MD Technologist: MLL Normal [facility] Lipase Levelon 09-19-2017 Lipase Lvl 34 U/L Normal 8-57 [facility] Comment on above: Performed By: #### 2 [id number] ####JOSE ARMANDO MoseleyYfxRhmp3721 [place] [address] eGFRon 09-19-2017 eGFR AA 57 mL/min/1.73 m2 Normal [facility] Comment on above: Order Comment: Order added by Discern Expert. Performed By: #### 1 [id number] ####JOSE ARMANDO FzqEquz1771 [place] [address] eGFR (non-black) 47 mL/min/1.73 m2 Normal [facility] Comment on above: Order Comment: Order added by Discern Expert. Performed By: #### 1 [id number] ####JOSE ARMANDO ZwlGhlb7695 [place] [address] Office Visit: pulmonary nodu les & HX PEon 01-27-2017 Documentation of current medications (procedure) Done Invalid Interpretation Code [facility] Work Phone: Tobacco smoking status NHIS Former Invalid Interpretation Code [facility] Work Phone: Tobacco use [facility] Never smoker Invalid Interpretation Code [facility] Work Phone: Office Visit: DISCUSS PLAN O F CARE - PHQ9 Completeon 05-26-2016 Adult depression screening assessment Adult depression screening assessment Invalid Interpretation Code [facility] Work Phone: Replaced Document: (P) Antit hrombin 3 Functionon 01-16-2016 AT3 FUNCTION 115 % Invalid Interpretation Code 75-135 [facility] Work Phone: Replaced Document: (P) Lupus Anticoagulant Compon 01-16-2016 aPTT 37.6 s Invalid Interpretation Code 0.0-40.6 [facility] Work Phone: DILUTE PT (dPT) 57.5 s High 0.0-55.0 [facility] Work Phone: dPT Conf. Ratio 1.4 ratio High 0.8-1.2 [facility] Work Phone: DRVVT 67.7 s High 0.0-44.0 [facility] Work Phone: Interpretation Comment: Invalid Interpretation Code . [facility] Work Phone: THROMBIN TIME 22.0 s High 0.0-20.9 [facility] Work Phone: Replaced Document: (P) MTHFR DNA Varianton 01-16-2016 REFERENCES . 1 Invalid Interpretation Code [facility] Work Phone: Lab Report: Vitamin D,25 Hyd roxyon 01-09-2016 Vitamin D 25-OH 10.3 ng/mL Invalid Interpretation Code [facility] Work Phone: Lab Report: Bilirubin, Direc ton 01-08-2016 Bilirubin (direct) 0.12 mg/dL Invalid Interpretation Code 0.00-0.30 [facility] Work Phone: Lab Report: Comprehensive Me tabolic Profilon 01-08-2016 Alanine aminotransferase (ALT) 56 U/L Invalid Interpretation Code 12-78 [facility] Work Phone: Albumin 4.2 g/dL Invalid Interpretation Code 3.4-5.0 [facility] Work Phone: Albumin/Globulin Ratio 1.2 {ratio} Invalid Interpretation Code 0.9-2.4 [facility] Work Phone: Alkaline phosphatase (ALP) 43 U/L Low 50-136 [facility] Work Phone: Anion gap 6 mmol/L Invalid Interpretation Code 5-15 [facility] Work Phone: Aspartate aminotransferase (AST) 30 U/L Invalid Interpretation Code 15-37 [facility] Work Phone: Bilirubin (total) 0.70 mg/dL Invalid Interpretation Code 0.20-1.00 [facility] Work Phone: BUN/Creatinine Ratio 10.9 RATIO Invalid Interpretation Code 10-20 [facility] Work Phone: Calcium 9.1 mg/dL Invalid Interpretation Code 8.5-10.1 [facility] Work Phone: Chloride 105 mmol/L Invalid Interpretation Code 98-107 [facility] Work Phone: CO2 30.0 mmol/L Invalid Interpretation Code 21.0-32.0 [facility] Work Phone: eGFR (non-black) 59 mL/min/{1.73_m2} Low >60 [facility] Work Phone: eGFR (non-black) 72 mL/min/{1.73_m2} Invalid Interpretation Code >60 [facility] Work Phone: Globulin 3.4 g/dL Invalid Interpretation Code 2.3-3.5 [facility] Work Phone: Potassium molar conc 4.1 mmol/L Invalid Interpretation Code 3.5-5.1 [facility] Work Phone: Protein 7.6 g/dL Invalid Interpretation Code 6.4-8.2 [facility] Work Phone: Sodium 141 mmol/L Invalid Interpretation Code 136-145 [facility] Work Phone: Creatinine 1.38 mg/dL High 0.70-1.30 [facility] Work Phone: Glucose mass conc 86 mg/dL Invalid Interpretation Code 70-110 [facility] Work Phone: Urea nitrogen 15 mg/dL Invalid Interpretation Code 7-18 [facility] Work Phone: Lab Report: Erythrocyte Sed Rateon 01-08-2016 Erythrocyte sedimentation rate 4 mm/h Invalid Interpretation Code 0-15 [facility] Work Phone: Lab Report: Ferritinon 01-07 Ferritin 191 ng/mL Invalid Interpretation Code 26-388 [facility] Work Phone: Lab Report: Lipid Profileon 01-08-2016 Cholesterol 171 mg/dL Invalid Interpretation Code 200 [facility] Work Phone: HDL Cholesterol 30 mg/dL Low [facility] Work Phone: LDL Cholesterol Test not performed mg/dL Invalid Interpretation Code 0-130 [facility] Work Phone: Triglyceride 415 mg/dL High [facility] Phone: very low density lipoproteins Test not performed mg/dL Invalid Interpretation Code 5-40 [facility] Phone: Lab Report: Microalbumin,Ran dom Urineon 01-08-2016 Urine, microalbumin < 5.0 mg/L Invalid Interpretation Code NO RANGE EST. [facility] Work Phone: Lab Report: Thyroid Stim Hor korey (TSH)on 01-08-2016 Thyroid stimulating hormone (TSH) 2.48 u[iU]/mL Invalid Interpretation Code 0.358-3.74 [facility] Phone: Lab Report: Uric Acidon Urate 6.8 mg/dL Invalid Interpretation Code 3.5-7.2 [facility] Phone: Replaced Document: (P) CBC W /Diff, Automatedon 01-08-2016 Absolute Neut 2.4 X10 3/UL Invalid Interpretation Code 2.0-7.7 [facility] Phone: Basophils/100 WBC Auto (Bld) 0.4 % Invalid Interpretation Code 0-1 [facility] Phone: Eosinophils/100 leukocytes 1.8 % Invalid Interpretation Code 0-5 [facility] Phone: Erythrocyte distribution width Auto Ratio (RBC) 11.9 % Invalid Interpretation Code 11.6-14.6 [facility] Phone: Erythrocytes (RBC) 5.17 10*6/uL Invalid Interpretation Code 4.6-6.2 [facility] Phone: Hematocrit (HCT) 46.4 % Invalid Interpretation Code 40-54 [facility] Phone: Hemoglobin mass conc (Bld) 16.1 g/dL Invalid Interpretation Code 13.0-16.5 [facility] Phone: Immature granulocytes/100 WBC (Bld) 0.000 % Invalid Interpretation Code 0.0-0.9 [facility] Work Phone: Lymphocytes 2.00 X10 3/UL Invalid Interpretation Code 0.83-4.51 [facility] Work Phone: Lymphocytes/100 leukocytes 39.8 % Invalid Interpretation Code 19-41 [facility] Work Phone: MCH 31.1 pg Invalid Interpretation Code 27.0-32.0 [facility] Work Phone: MCHC mass conc (RBC) 34.7 G/GL Invalid Interpretation Code 32-36 [facility] Work Phone: MCV 89.7 fL Invalid Interpretation Code 80-94 [facility] Work Phone: Monocytes/100 leukocytes 10.2 % High 0-10 [facility] Work Phone: Neutrophils/100 WBC Auto (Bld) 47.8 % Invalid Interpretation Code 47-70 [facility] Work Phone: Platelets 199 10*3/mm3 Invalid Interpretation Code 150-450 [facility] Work Phone: PMV by Ghada 10.3 fL Invalid Interpretation Code 6.2-12.0 [facility] Phone: RDW SD 38.9 fL Invalid Interpretation Code 35.1-43.9 [facility] Work Phone: WBC (Leukocytes) 5.0 10*3/uL Invalid Interpretation Code 4.4-11.0 [facility] Work Phone: Replaced Document: (P) Retic Panelon 01-08-2016 Reticulocytes/100 erythrocytes 1.60 % High 0.5-1.5 [facility] Work Phone: Vital Signs Date Time Vital Sign Value Performing Clinician Facility 06-29-2024 11:51-0400 Body mass index (BMI) [Ratio] 31.97 kg/m2 Luis Falls DO Work Phone: [facility] 06-29-2024 11:51-0400 Body weight 109.91 kg Luis Falls DO Work Phone: [facility] 06-29-2024 11:51-0400 Diastolic blood pressure 88 mm[Hg] Luis Falls DO Work Phone: [facility] 06-29-2024 11:51-0400 Heart rate 73 /min Luis Falls DO Work Phone: [facility] 06-29-2024 11:51-0400 Systolic blood pressure 148 mm[Hg] Luis Falls DO Work Phone: [facility] 04-29-2024 09:10-0500 Body mass index (BMI) [Ratio] 31.26 kg/m2 Luis Falls DO Work Phone: [facility] 04-29-2024 09:10-0500 Body weight 107.46 kg Luis Falls DO Work Phone: [facility] 04-29-2024 09:10-0500 Diastolic blood pressure 91 mm[Hg] Luis Falls DO Work Phone: [facility] 04-29-2024 09:10-0500 Heart rate 66 /min Luis Falls DO Work Phone: [facility] 04-29-2024 09:10-0500 Systolic blood pressure 138 mm[Hg] Luis Falls DO Work Phone: [facility] 04-29-2023 08:43-0500 Body mass index (BMI) [Ratio] 34.7 kg/m2 Luis Falls DO Work Phone: [facility] 04-29-2023 08:43-0500 Body weight 119.3 kg Luis Falls DO Work Phone: [facility] 04-29-2023 08:43-0500 Diastolic blood pressure 78 mm[Hg] Luis Falls DO Work Phone: [facility] 04-29-2023 08:43-0500 Heart rate 63 /min Luis Falls DO Work Phone: [facility] 04-29-2023 08:43-0500 Systolic blood pressure 130 mm[Hg] Luis Balderas DO Work Phone: [facility] 04-09-2022 08:09-0500 Body mass index (BMI) [Ratio] 35.09 kg/m2 Tegan Winn MD Work Phone: [facility] 04-09-2022 08:09-0500 Body weight 120.66 kg Tegan Winn MD Work Phone: [facility] 04-09-2022 08:09-0500 Diastolic blood pressure 82 mm[Hg] Tegan Winn MD Work Phone: [facility] 04-09-2022 08:09-0500 Heart rate 62 /min Tegan Winn MD Work Phone: [facility] 04-09-2022 08:09-0500 Systolic blood pressure 122 mm[Hg] Tegan Winn MD Work Phone: [facility] 07-18-2020 11:41-0400 Body height 180.34 cm Thomas Breezy Saenz Work Phone: [facility] [address] Work Phone: 07-18-2020 11:41-0400 Body mass index (BMI) [Ratio] 37.1 kg/m2 Thomas Breezy Saenz Work Phone: [facility] [address] Work Phone: 07-18-2020 11:41-0400 Body surface area Derived from formula 2.38 m2 Thomas Breezy Saenz Work Phone: [facility] [address] Work Phone: 07-18-2020 11:41-0400 Body temperature 98 [degF] Thomas Breezy Saenz Work Phone: [facility] [address] Work Phone: 07-18-2020 11:41-0400 Body weight 120.66 kg Thomas Breezy Saenz Work Phone: [facility] [address] Work Phone: 07-18-2020 11:41-0400 Diastolic blood pressure 80 mm[Hg] Thomas Saenz Work Phone: [facility] [address] Work Phone: 07-18-2020 11:41-0400 Systolic blood pressure 122 mm[Hg] Thomas Saenz Work Phone: [facility] [address] Work Phone: 04-11-2020 09:08-0500 BMI (Body Mass Index) 32.72 kg/m2 [facility] 04-11-2020 09:08-0500 Body weight 112.49 kg [facility] 04-11-2020 09:08-0500 BP Diastolic 77 mm[Hg] [facility] 04-11-2020 09:08-0500 BP Systolic 134 mm[Hg] [facility] 04-11-2020 09:08-0500 Pulse (Heart Rate) 67 /min [facility] 01-05-2020 12:44-0400 BMI (Body Mass Index) 33.78 kg/m2 [facility] 01-05-2020 12:44-0400 Body weight 116.12 kg [facility] 01-05-2020 12:44-0400 BP Diastolic 81 mm[Hg] [facility] 01-05-2020 12:44-0400 BP Systolic 160 mm[Hg] [facility] 01-05-2020 12:44-0400 Height 185.4 cm [facility] 01-05-2020 12:44-0400 Pulse (Heart Rate) 69 /min [facility] 01-13-2019 16:02-0500 BMI (Body Mass Index) 34.3 kg/m2 [facility] 01-13-2019 16:02-0500 Body weight 117.94 kg Carson Rich [facility] 01-13-2019 16:02-0500 BP Diastolic 83 mm[Hg] Carson Rich [facility] 01-13-2019 16:02-0500 BP Systolic 134 mm[Hg] Carson [facility] 01-13-2019 16:02-0500 Pulse (Heart Rate) 58 /min Carson Rich [facility] 01-27-2017 06:40-0500 BMI (Body Mass Index) 33.51 kg/m2 Jennifer Ch LPN [facility] Work Phone: 01-27-2017 06:40-0500 Body Temperature 97.2 [degF] Jenniferblake Ch LPN [facility] Work Phone: 01-27-2017 06:40-0500 BP Diastolic 89 mm[Hg] Jennifer Ch LASER MACHINE OPERATOR [facility] Work Phone: 01-27-2017 06:40-0500 BP Systolic 152 mm[Hg] Jennifer Ch LASER MACHINE OPERATOR [facility] Work Phone: 01-27-2017 06:40-0500 Height 185.42 cm Jenniferblake Ch LASER MACHINE OPERATOR [facility] Work Phone: 01-27-2017 06:40-0500 Pulse (Heart Rate) 77 /min Jennifer Ch LPN [facility] Work Phone: 01-27-2017 06:40-0500 Respiratory Rate 18 /min Jennifer Ch LPN [facility] Work Phone: 01-27-2017 06:40-0500 Weight 115.21 kg Jennifer Ch LASER MACHINE OPERATOR [facility] Work Phone: 01-15-2017 16:14-0500 BMI (Body Mass Index) 33.23 kg/m2 Carson Rich [facility] Work Phone: 01-15-2017 16:14-0500 BP Diastolic 82 mm[Hg] Carson Rich [facility] Work Phone: 01-15-2017 16:14-0500 BP Systolic 133 mm[Hg] Carson Rich [facility] Work Phone: 01-15-2017 16:14-0500 Height 185.4 cm Carson Rich [employer] Work Phone: 01-15-2017 16:14-0500 Pulse (Heart Rate) 71 /min Carson Rich [employer] Work Phone: 01-15-2017 16:14-0500 Weight 114.26 kg Carson Rich [employer] Work Phone: 05-26-2016 15:06-0400 BSA (Body Surface Area) 2.41 m2 Jennifer Ch LPN [facility] Phone: 05-26-2016 15:06-0400 Height 185.42 cm Jennifer Ch LPN [facility] Phone: 05-26-2016 15:06-0400 Weight 117.91 kg Jennifer Ch LPN [facility] Phone: 01-30-2016 11:15-0500 Body Temperature 97.88 [degF] Jennifer hC LPN [facility] Phone: Encounters Encounter Date Encounter Type Care Provider Facility Start: 07-07-2024 End: 07-07-2024 Documentation procedure Addi Howell LPN [facility] Start: 07-07-[facility] Start: 07-04-2024 End: [facility] Start: 06-29-2024 End: 06-29-2024 Office outpatient visit 25 minutes Luis Balderas DO Work Phone: [facility] Comment on above: Psoriasis (Primary D x); Psoriatic arthritis (HCC); High risk medication use Start: 06-29-2024 End: 06-29-2024 ambulatory LUIS MORSE [facility] Amb[facility] Start: 06-23-2024 ambulatory LUIS MORSE [facility] Ambulatory Start: 06-07-2024 End: 06-07-2024 Documentation procedure Addi Howell LPN [facility] Start: 05-13-2024 ambulatory LUIS BALDERAS [facility] Start: 04-29-2024 End: 04-29-2024 Office outpatient visit 25 minutes Luis Balderas DO Work Phone: [facility] Comment on above: Psoriasis (Primary D x); Bilateral sacroiliitis (HCC); Psoriatic arthritis (HCC); High risk medication use Start: 04-29-2024 End: 04-29-2024 ambulatory LUIS BALDERAS [facility] Start: 12-07-2023 End: 12-07-2023 ambulatory [facility] Facility:[facility] Start: 05-21-2023 Documentation procedure Addi Howell LPN [facility] Start: 04-30-2023 Refill Luis Balderas DO Work Phone: [facility] Comment on above: Psoriatic arthritis (HCC) (Primary Dx); Bilateral sacroiliitis (HCC) Start: 04-29-2023 End: 04-29-2023 Office outpatient visit 25 minutes Luis Balderas DO Work Phone: [facility] Comment on above: Psoriatic arthritis (HCC) (Primary Dx); Bilateral sacroiliitis (HCC); High risk medication use Start: 03-20-2023 Refill Luis Balderas DO Work Phone: [facility] Comment on above: Bilateral sacroiliit is (HCC); Psoriatic arthritis (HCC) Start: 10-21-2022 Documentation procedure Addi Howell LPN [facility] Start: 05-19-2022 Documentation procedure Addi Howell LASER MACHINE OPERATOR [facility] Start: 04-09-2022 End: 04-13-2022 ambulatory [facility] Start: 04-09-2022 End: 04-13-2022 Encounter for general adult medical examination without abnormal findings [facility] Start: 04-09-2022 End: 04-09-2022 Office outpatient visit 40 minutes Tegan Winn MD Work Phone: [facility] Comment on above: Psoriasis with arthr opathy (HCC) (Primary Dx); Bilateral sacroiliitis (HCC); Encounter for monitoring of etanercept therapy; Encounter for screening for viral disease; Healthcare maintenance; Psoriatic arthritis (HCC); Rotator cuff arthropathy of both shoulders; Acromioclavicular arthrosis, bilateral Start: 04-09-2022 End: 04-09-2022 Patient encounter status Tegan Winn MD Work Phone: [facility] Start: 03-31-2022 Refill Tegan Winn MD Work Phone: [facility] Comment on above: Psoriatic arthritis (HCC) Start: 02-21-2022 Documentation procedure Addi Howell LPN [facility] Start: 08-03-2020 AUDIT Thomas Saenz Work Phone: [facility] [address] Work Phone: Start: 04-11-2020 End: 04-11-2020 Subsequent hospital visit by physician Tegan Winn Work Phone: [facility] Comment on above: Multiple lung nodule s Start: 04-11-2020 End: 04-11-2020 Office outpatient visit 40 minutes Tegan Winn Work Phone: [facility] Comment on above: Psoriatic arthritis (HCC) (Primary Dx); Encounter for monitoring of etanercept therapy; Healthcare maintenance; Multiple lung nodules; Osteoarthritis, unspecified osteoarthritis type, unspecified site Start: 01-05-2020 End: 01-05-2020 Subsequent hospital visit by physician Tegan Winn Work Phone: [facility] Comment on above: Psoriatic arthritis (HCC) Start: 01-05-2020 End: 01-05-2020 Office outpatient visit 40 minutes Tegan Winn Work Phone: [facility] Comment on above: Psoriatic arthritis (HCC) (Primary Dx); Encounter for monitoring of etanercept therapy; Osteoarthritis, unspecified osteoarthritis type, unspecified site; Healthcare maintenance Start: 07-08-2019 Refill Carson june MD [facility] Comment on above: Psoriatic arthritis (HCC) Start: 01-13-2019 End: 01-13-2019 Office outpatient visit 15 minutes Carson Valdiviaedwardbaldemar Work Phone: [facility] Comment on above: Psoriatic arthritis (HCC) Start: 05-27-2018 Refill Carson june MD [facility] Comment on above: Psoriatic arthritis (HCC) Start: 01-14-2018 Patient encounter procedure Carson Rich Facility:[place] Start: 01-14-2018 End: 01-14-2018 Patient encounter Carson Rich Work Phone: [facility] Start: 09-19-2017 End: 09-19-2017 Emergency department patient visit [facility] Facility:[facility] Start: 09-19-2017 Patient encounter Facil [id number] Start: 01-15-2017 Office outpatient vi sit 15 minutes Carson Tom Sheajerrell Work Phone: [facility] Procedures Date Procedure Procedure Detail Performing Clinician Start: 04-11-2020 Standard chest X-ray An n Quyen Winn Work Phone: Start: 01-05-2020 Radiologic examinati on pelvis 1/2 views Tegan Winn Work Phone: Start: 01-14-2018 End: 01-14-2018 Complete blood count with white cell differential, manual Carson Valdiviaedwardbaldemar Work Phone: Start: 01-14-2018 End: 01-14-2018 Erythrocyte sedimentation rate by Westergren method Carson Tom Sheaedwardbaldemar Work Phone: Start: 01-14-2018 End: 01-14-2018 [facility]HS - CRP, C-REACTIVE PROTEIN Carson Tom Sheajerrell Work Phone: Start: 01-07-2017 End: 01-22-2017 Ct thorax w/o contrast material Cullen Flores Work Phone: Start: 12-08-2015 End: 01-25-2016 Ct thorax w/o contrast material Cullen Flores Work Phone: Start: 08-07-2015 End: 01-22-2017 Follow Up Appt 6 months Cullen Flores Work Phone: Operative procedure on hand Thomas A Dany Work Phone: Plan of Treatment Date Care Activity Detail Author Start: 11-23-2029 Tetanus vaccination Tetanus: Every 1 0yrs [facility] Start: 11-07-2024 Influenza vaccination Influenz a Vaccine (Season Ended) [facility] Start: 10-27-2024 End: 10-27-2024 Patient encounter procedure 10/27/2024 9:10 AM EDT Office Visit [facility] [address] [place] [address] [place] [address] Luis Balderas DO [address] [place] [phone] [facility] Start: 09-29-2024 End: 09-29-2024 Patient encounter procedure 09/29/2024 11:50 AM EDT Office Visit [facility] [address] [place] [address] [place] [phone] Luis Balderas DO [address] [place] [phone] [facility] Start: 04-29-2024 End: 04-29-2024 Patient encounter procedure 04/29/2024 9:15 AM EST Office Visit [facility] [address] [place] [address] [place] [address] Luis Balderas DO [address] [place] [address] [phone] [facility] Start: 04-09-2024 Prostate specific antigen measurement PSA Level [facility] Start: 11-08-2023 COVID-19 Vaccine ( season) COVID-19 Vaccine ( season) [facility] Start: 11-08-2023 Influenza vaccination Influenza Vacc ine (#1) [facility] Start: 04-29-2023 End: 04-29-2023 Patient encounter procedure 04/29/2023 8:45 AM EST Office Visit [facility] [address] [place] [address] [place] [phone] Iza Luis GardnererineDO [address] [place] [phone] [facility] Start: 04-08-2023 End: 04-08-2023 Patient encounter procedure [facility] Start: 11-07-2022 COVID-19 Vaccine ( season) COVID-19 Vaccine ( season) [facility] Start: 11-07-2022 Influenza vaccination Sequenti al Influenza Vaccine (#1) [facility] Start: 04-09-2022 End: 04-09-2022 Patient encounter procedure 04/09/2022 Office Visit Orthopedic Surgery Tegan Winn MD [address] [place] [phone] [facility] Start: 11-07-2021 Influenza vaccination Sequenti al Influenza Vaccine (#1) [facility] Start: 05-14-2021 Administration of he rpes zoster vaccine Zoster Vaccines (1 of 2) [facility] Start: 05-14-2021 Pneumococcal Vaccine : Age 50+ (1 of 1 - PCV) Pneumococcal Vaccine: Age 50+ (1 of 1 - PCV) [facility] Start: 05-14-2021 Screening for malign ant neoplasm of colon Flexible sigmoidoscopy [facility] Start: 04-10-2021 End: 04-10-2021 Office Visit 04/10/2021 Office Visit Orthopedic Surgery Tegan Winn MD [address] [place] [address] [phone] [facility] Start: 07-19-2020 COVID-19 Vaccine (2 - Pfizer series) COVID-19 Vaccine (2 - Pfizer series) [facility] Start: 06-14-2020 COVID-19 Vaccine (2 - Pfizer series) COVID-19 Vaccine (2 - Pfizer series) [facility] Start: 04-10-2020 End: 04-10-2020 Office Visit 04/10/2020 Office Visit Orthopedic Surgery Tegan Winn MD [address] [place] [address] [phone] [facility] Start: 01-12-2020 End: 01-12-2020 Office Visit 01/12/2020 Office Visit Orthopedic Surgery Carson Rich MD [address] [place] [address] [phone] [facility] Start: 11-08-2019 Influenza vaccinatio n given Sequential Influenza Vaccine (#1) [facility] Start: 01-13-2019 End: 01-13-2019 Ambulatory 01/13/2019 Office Visit Orthopedic Surgery Carson Rich MD [address] [place] [address] [phone] [facility] Start: 11-07-2018 Influenza vaccinatio n given SEQUENTIAL INFLUENZA VACCINE (#1) [facility] Start: 01-14-2018 Ambulatory 01/14/2018 Off ice Visit Orthopedic Surgery Carson Rich MD [address] [place] [address] [phone] [facility] Start: 11-07-2017 Influenza vaccination SEQUENTI AL INFLUENZA VACCINE (#1) [facility] Start: 01-27-2017 End: 01-27-2017 Appointment Appointment [facility] Work Phone: Start: 01-07-2017 End: 01-22-2017 Ct thorax w/o contrast material CT Chest without contrast [facility] Work Phone: Start: 11-07-2016 Influenza vaccination SEQUENTI AL INFLUENZA VACCINE (#1) [facility] Work Phone: Start: 05-26-2016 End: 05-30-2016 Office outpatient visit 25 minutes [id number] Ofc Vst, Est Level IV [facility] Work Phone: Start: 01-30-2016 End: 01-30-2016 Follow Up Appt 1 year Follow Up Appt 1 year [facility] Work Phone: Start: 12-08-2015 End: 01-25-2016 Ct thorax w/o contrast material CT Chest without contrast [facility] Phone: Start: 08-07-2015 End: 01-22-2017 Follow Up Appt 6 months Follow Up Appt 6 months [facility] Work Phone: Start: 05-14-1989 Hepatitis C antibody , confirmatory test Hepatitis C Screening [facility] Start: 05-14-1986 HIV screening HIV Screening [facility] Start: 1983 Adolescent depressio n screening assessment Depression Screening (PHQ9) [facility] Start: 1983 Depression screening using PHQ-9 (Patient Health Questionnaire 9) score [facility] Start: 05-14-1974 History and physical examination, annual for health maintenance Wellness Visit [facility] Start: 1971 Prostate specific antigen measurement PSA Level [facility] Start: 1971 Screening for malign ant neoplasm of colon [facility] Start: 1971 Tetanus vaccination [facility] Work Phone: End: 01-04-2021 Anti-cyclic citrullinated peptide antibody level [facility] Antibody Lab Routine Psoriatic arthritis (HCC) 1 Occurrences starting 01/05/2020 until 01/04/2021 [facility] Comment on above: 1 Occurrences starti ng 01/05/2020 until 01/04/2021 Anti-cyclic citrullinated peptide antibody level [facility] Antibody Lab Routine Psoriatic arthritis (HCC) 01/05/2020 1:54 PM EDT [facility] End: 01-14-2020 Complete blood count with white cell differential, manual CBC and Differential Lab Routine Psoriatic arthritis (HCC) 1 Occurrences starting 01/13/2019 until 01/14/2020 [facility] Comment on above: 1 Occurrences starti ng 01/13/2019 until 01/14/2020 End: 06-29-2025 Complete blood count with white cell differential, manual CBC and Differential Lab Routine High risk medication use 1 Occurrences starting 06/29/2024 until 06/29/2025 [facility] Comment on above: 1 Occurrences starti ng 06/29/2024 until 06/29/2025 End: 06-29-2025 Creatinine [Mass/volume] in Serum or Plasma Creatinine, serum Lab Routine High risk medication use 1 Occurrences starting 06/29/2024 until 06/29/2025 [facility] Comment on above: 1 Occurrences starti ng 06/29/2024 until 06/29/2025 End: 01-14-2020 CRP [Mass/Vol] CRP, Inflammation Lab Routine Psoriatic arthritis (HCC) 1 Occurrences starting 01/13/2019 until 01/14/2020 [facility] Comment on above: 1 Occurrences starti ng 01/13/2019 until 01/14/2020 End: 01-14-2020 ESR (Bld) [Velocity] Sedimentation Rate Lab Routine Psoriatic arthritis (HCC) 1 Occurrences starting 01/13/2019 until 01/14/2020 [facility] Comment on above: 1 Occurrences starti ng 01/13/2019 until 01/14/2020 End: 04-09-2023 Hemoglobin A1c/Hemoglobin.total in Blood Hemoglobin A1c Lab Routine Healthcare maintenance 1 Occurrences starting 04/09/2022 until 04/09/2023 [facility] Work Phone: Comment on above: 1 Occurrences starti ng 04/09/2022 until 04/09/2023 Hemoglobin A1c/Hemoglobin.total in Blood Hemoglobin A1c Lab Routine Healthcare maintenance 04/09/2022 8:54 AM EST [facility] End: 06-29-2025 Hepatic function 2000 panel - Serum or Plasma Hepatic Function Panel Lab Routine High risk medication use 1 Occurrences starting 06/29/2024 until 06/29/2025 [facility] Comment on above: 1 Occurrences starti ng 06/29/2024 until 06/29/2025 End: 01-04-2021 Hepatitis B core antibody measurement Hepatitis B Core Antibody, Total Lab Routine Psoriatic arthritis (HCC) 1 Occurrences starting 01/05/2020 until 01/04/2021 [facility] Comment on above: 1 Occurrences starti ng 01/05/2020 until 01/04/2021 Hepatitis B core antibody measurement Hepatitis B Core Antibody, Total Lab Routine Psoriatic arthritis (HCC) 01/05/2020 1:54 PM EDT [facility] End: 04-09-2023 Hepatitis B core antibody measurement Hepatitis B Core Antibody, Total Lab Routine Psoriatic arthritis (HCC) 1 Occurrences starting 04/09/2022 until 04/09/2023 [facility] Comment on above: 1 Occurrences starti ng 04/09/2022 until 04/09/2023 Hepatitis B core antibody measurement Hepatitis B Core Antibody, Total Lab Routine Psoriatic arthritis (HCC) 04/09/2022 8:54 AM EST [facility] End: 06-29-2025 Hepatitis B core antibody measurement Hepatitis B Core Antibody, Total Lab Routine Psoriasis Psoriatic arthritis (HCC) 1 Occurrences starting 06/29/2024 until 06/29/2025 [facility] Work Phone: Comment on above: 1 Occurrences starti ng 06/29/2024 until 06/29/2025 End: 01-04-2021 Hepatitis B surface antibody measurement Hepatitis B Surface Antibody Lab Routine Psoriatic arthritis (HCC) 1 Occurrences starting 01/05/2020 until 01/04/2021 [facility] Comment on above: 1 Occurrences starti ng 01/05/2020 until 01/04/2021 Hepatitis B surface antibody measurement Hepatitis B Surface Antibody Lab Routine Psoriatic arthritis (HCC) 01/05/2020 1:54 PM EDT [facility] End: 04-09-2023 Hepatitis B surface antibody measurement Hepatitis B Surface Antibody Lab Routine Psoriatic arthritis (HCC) 1 Occurrences starting 04/09/2022 until 04/09/2023 [facility] Comment on above: 1 Occurrences starti ng 04/09/2022 until 04/09/2023 Hepatitis B surface antibody measurement Hepatitis B Surface Antibody Lab Routine Psoriatic arthritis (HCC) 04/09/2022 8:54 AM EST [facility] End: 06-29-2025 Hepatitis B surface antibody measurement Hepatitis B Surface Antibody Lab Routine Psoriasis Psoriatic arthritis (HCC) 1 Occurrences starting 06/29/2024 until 06/29/2025 [facility] Comment on above: 1 Occurrences starti ng 06/29/2024 until 06/29/2025 End: 01-04-2021 Hepatitis B surface antigen measurement Hepatitis B Surface Antigen Lab Routine Psoriatic arthritis (HCC) 1 Occurrences starting 01/05/2020 until 01/04/2021 [facility] Comment on above: 1 Occurrences starti ng 01/05/2020 until 01/04/2021 Hepatitis B surface antigen measurement Hepatitis B Surface Antigen Lab Routine Psoriatic arthritis (HCC) 01/05/2020 1:54 PM EDT [facility] End: 04-09-2023 Hepatitis B surface antigen measurement Hepatitis B Surface Antigen Lab Routine Psoriatic arthritis (HCC) 1 Occurrences starting 04/09/2022 until 04/09/2023 [facility] Comment on above: 1 Occurrences starti ng 04/09/2022 until 04/09/2023 Hepatitis B surface antigen measurement Hepatitis B Surface Antigen Lab Routine Psoriatic arthritis (HCC) 04/09/2022 8:54 AM EST [facility] End: 06-29-2025 Hepatitis B surface antigen measurement Hepatitis B Surface Antigen Lab Routine Psoriasis Psoriatic arthritis (HCC) 1 Occurrences starting 06/29/2024 until 06/29/2025 [facility] Comment on above: 1 Occurrences starti ng 06/29/2024 until 06/29/2025 End: 06-29-2025 Hepatitis C Ab with Reflex to HCV Virus Quantitation Hepatitis C Ab with Reflex to HCV Virus Quantitation Lab Routine Psoriasis Psoriatic arthritis (HCC) 1 Occurrences starting 06/29/2024 until 06/29/2025 [facility] Comment on above: 1 Occurrences starti ng 06/29/2024 until 06/29/2025 End: 01-04-2021 Hepatitis C antibody measurement Hepatitis C Antibody Lab Routine Psoriatic arthritis (HCC) 1 Occurrences starting 01/05/2020 until 01/04/2021 [facility] Comment on above: 1 Occurrences starti ng 01/05/2020 until 01/04/2021 Hepatitis C antibody measurement Hepatitis C Antibody Lab Routine Psoriatic arthritis (HCC) 01/05/2020 1:54 PM EDT [facility] End: 04-09-2023 Hepatitis C antibody measurement Hepatitis C Antibody Lab Routine Psoriatic arthritis (HCC) 1 Occurrences starting 04/09/2022 until 04/09/2023 [facility] Comment on above: 1 Occurrences starti ng 04/09/2022 until 04/09/2023 Hepatitis C antibody measurement Hepatitis C Antibody Lab Routine Psoriatic arthritis (HCC) 04/09/2022 8:54 AM EST [facility] End: 06-29-2025 MTB SCREEN MTB SCREEN Lab Routine Psoriasis Psoriatic arthritis (HCC) 1 Occurrences starting 06/29/2024 until 06/29/2025 [facility] Comment on above: 1 Occurrences starti ng 06/29/2024 until 06/29/2025 End: 01-04-2021 Rheumatoid factor, quantitative Rheumatoid factor Lab Routine Psoriatic arthritis (HCC) 1 Occurrences starting 01/05/2020 until 01/04/2021 [facility] Comment on above: 1 Occurrences starti ng 01/05/2020 until 01/04/2021 Rheumatoid factor, quantitative Rheumatoid factor Lab Routine Psoriatic arthritis ([facility]) 01/05/2020 1:54 PM EDT [facility] End: 04-09-2023 T-Spot TB Screen T-Spot TB Screen Lab Routine Psoriatic arthritis ([facility]) 1 Occurrences starting 04/09/2022 until 04/09/2023 [facility] Comment on above: 1 Occurrences starti ng 04/09/2022 until 04/09/2023 T-Spot TB Screen T-Spot TB Scree n Lab Routine Psoriatic arthritis ([facility]) 04/09/2022 8:54 AM EST [facility] End: 01-04-2021 Tuberculosis screening M. Tuberculosis by QuantiFERON Lab Routine Psoriatic arthritis ([facility]) 1 Occurrences starting 01/05/2020 until 01/04/2021 [facility] Comment on above: 1 Occurrences starti ng 01/05/2020 until 01/04/2021 Tuberculosis screening M. Tuberc ulosis by QuantiFERON Lab Routine Psoriatic arthritis ([facility]) 01/05/2020 1:54 PM EDT [facility] End: 01-04-2021 XR Hands Bilateral Ball Catchers 2 Views XR Hands Bilateral Ball Catchers 2 Views Imaging Routine Psoriatic arthritis (HCC) 1 Occurrences starting 01/05/2020 until 01/04/2021 [facility] Comment on above: 1 Occurrences starti ng 01/05/2020 until 01/04/2021 XR Hands Bilateral B all Catchers 2 Views XR Hands Bilateral Ball Catchers 2 Views Imaging Routine Psoriatic arthritis (HCC) 01/05/2020 1:37 PM EDT [facility] End: 01-05-2020 XR Hands Bilateral Ball Catchers 2 Views XR Hands Bilateral Ball Catchers 2 Views Imaging Routine Psoriatic arthritis (HCC) Once for 1 Occurrences starting 01/05/2020 until 01/05/2020 [facility] Comment on above: Once for 1 Occurrenc es starting 01/05/2020 until 01/05/2020 Immunizations Immunization Date Immunization Notes Care Provider Fa geetaty 11-24-2019 tetanus toxoid, redu yulia diphtheria toxoid, and acellular pertussis vaccine, adsorbed Tegan Igoe [facility] Payers Date Payer Category Payer Self-pay 2015 Managed Care PPO (unspecified) [employer] PPO Member Subscriber Plan / Payer (Effective 2015-Present) Name: Carrillo Lynn Relation to Subscriber: Self Name: Carrillo Lynn Payer ID: Not on file Group ID: [id number] Type: Not on file Address: [place] [id number] 2015 Unknown 2015 Unknown MMO [employer] S UPERMED PPO xxxxxxxxxxxx 2015-Present xxxxxxxxxxxx [id number] 2015 Unknown MMO [employer] S UPERMED PPO [id number] 2015-Present [id number] 2015 Unknown [id number] 1971 Unknown [id number] 1971 Unknown [id number] 1971 Unknown [id number] 1971 Unknown [id number] 1971 Unknown [id number] 1971 Unknown [id number] Unknown [id number] Unknown [id number] Social History Date Type Detail Facility Start: 01-15-2017 End: 04-09-2022 Tobacco smoking status NHIS Never smoker [facility] Work Phone: Start: 1970 Sex Assigned At Not on file [facility] Work Phone: Start: 01-13-2019 End: 04-09-2022 Alcohol intake Current drinker of alcohol (finding) [facility] Start: 07-05-2015 Alcohol Comment occasionally [facility] Start: 01-05-2020 End: 04-09-2022 Tobacco use and exposure Former user [facility] Start: 03-11-2021 End: 04-09-2022 Exposure to SARS-CoV-2 (event) Not sure [facility] Start: 04-09-2022 No advance directives No advance dir ectives [facility] Work Phone: Start: 04-09-2022 Tobacco use panel [facility] Clinical Notes 02-21-2022 to 07-18-2024 Addi Howell LPN - 07/18/2024 2:02 PM EDAddi Waller LPN - 07/07/2024 2:07 PM Addi Suresh LPN - 07/07/2024 2:07 PM Luis Swift, - 06/29/2024 12:11 PM EDT Note Date & Type Note Facility 07-18-2024 History of Presen t illness Narrative I received the PA approval for the pt.'s Cosentyx starter and maintenance doses. Pt and Dr. Balderas have both been notified. Pt.'s Cosentyx loading and maintenance dose required a PA. The online form was completed/submitted through [employer] documented in this encounter [facility] 07-07-2024 History of Presen t illness Narrative Pt.'s Cosentyx loading and maintenance dose required a PA. The online form was completed/submitted through [employer] documented in this encounter [facility] 06-29-2024 Note RHEUMATOLOGY FOLLOW- UP VISIT Patient Name: Carrillo Lynn : 1970 Medical Record: [id number] PCP: Thomas Saenz MD CHIEF COMPLAINT Psoriatic arthritis with axial involvement ASSESSMENT AND PLAN Carrillo Lynn is a 54 y.o. male who is being seen for evaluation of psoriatic arthritis with axial involvement.. Psoriatic arthritis Plaque psoriasis Bilateral sacroiliitis Persists with active symptoms in regards to joints and skin. He saw dermatology. I reviewed visit notes in which bimzelx and Skyrizi were noted as possible neck steps, though patient reports they also talked about Cosentyx. Discussed moving forward with Cosentyx with patient. He is in agreement with this. Plan: After infectious screening we will proceed with Cosentyx loading dose and maintenance dose at psoriasis dosing of 300 mg at weeks 0, 1, 2, 3, 4, and 300 mg every month thereafter. Continue follow-up with dermatology. High risk medication use Update infectious screens, CBC, creatinine, LFTs. Return to clinic in 3 to 4 months. Please do not hesitate to contact me with any questions or concerns. Luis Balderas DO [facility] Rheumatology [address] [place] [address] O: [phone] F: [phone] The above recommendations were discussed with the patient who understands and agrees with the plan. Portions of this note were copied forward from the patient's last clinic visit.? I have reviewed and updated the history, physical exam, data, assessment and plan of the note so that it reflects the evaluation and management of the patient on 06/29/2024. Portions of this note were created with [employer]. Every effort was made to proofread, but sound-alike errors may occasionally occur. Please contact me for any clarification of note contents. I am managing Carrillo Lynn for complex chronic condition(s) serving as the focal point for the patient's care for consistency and continuity over time. HPI/ROS Carrillo Lynn is a 54 y.o. male who is being seen in follow-up for psoriatic arthritis with axial involvement. Interval history I reviewed the nursing intake form. Any corrections needed have been updated in the HPI. Here for follow-up today after dermatology visit and to discuss medication change. Persist with more stiffness. Knees are stiff. Low back is stiff. Skin still flaring some. Was given topical agents by dermatology. Prior and initial history Diagnosed around age 29. Initially on paroxetine can and then switched to Enbrel. Main symptoms were mainly low back pain and has been found to have bilateral sacroiliitis. He has not had significant issues with psoriasis, and the joint symptoms preceded the skin involvement. Serologies/pertinent imaging and pathology RF/CCP negative. Prior rheumatology medications None PHYSICAL EXAM Vitals: 06/29/24 1151 BP: (!) 148/88 BP Location: Left arm Patient Position: Sitting Pulse: 73 Weight: 109.9 kg (242 lb 4.8 oz) Constitutional: ?No acute distress. Normal appearance. Not?ill-appearing. HENT: Head normocephalic?and atraumatic. Eyes: No discharge.??? Pulmonary: Pulmonary effort is normal. No?respiratory distress. Skin: Warm?and dry. Neurological: Alert. Psychiatric: ???Mood, affect, thought content normal. Musculoskeletal: No synovitis detected in hands. He does have small effusions in knees bilaterally. PAST MEDICAL HISTORY Past Medical History: Diagnosis Date Clotting disorder Hypertension Psoriatic arthritis (HCC) AUTHENTICATED BY LUIS BALDERAS, ON 06/29/2024 13:37:34 [facility] 06-29-2024 History of Presen t illness Narrative Images from the original note were not included. RHEUMATOLOGY FOLLOW-UP VISIT Patient Name: Carrillo Lynn : 1970 Medical Record: [id number] PCP: Thomas Saenz MD CHIEF COMPLAINT Psoriatic arthritis with axial involvement ASSESSMENT AND PLAN Carrillo Lynn is a 54 y.o. male who is being seen for evaluation of psoriatic arthritis with axial involvement.. Psoriatic arthritis Plaque psoriasis Bilateral sacroiliitis Persists with active symptoms in regards to joints and skin. He saw dermatology. I reviewed visit notes in which bimzelx and Skyrizi were noted as possible neck steps, though patient reports they also talked about Cosentyx. Discussed moving forward with Cosentyx with patient. He is in agreement with this. Plan: After infectious screening we will proceed with Cosentyx loading dose and maintenance dose at psoriasis dosing of 300 mg at weeks 0, 1, 2, 3, 4, and 300 mg every month thereafter. Continue follow-up with dermatology. High risk medication use Update infectious screens, CBC, creatinine, LFTs. Return to clinic in 3 to 4 months. Please do not hesitate to contact me with any questions or concerns. Luis Balderas DO [facility] Rheumatology [address] [place] [address] O: [phone] F: [phone] The above recommendations were discussed with the patient who understands and agrees with the plan. Portions of this note were copied forward from the patient's last clinic visit.? I have reviewed and updated the history, physical exam, data, assessment and plan of the note so that it reflects the evaluation and management of the patient on 06/29/2024. Portions of this note were created with [employer]. Every effort was made to proofread, but sound-alike errors may occasionally occur. Please contact me for any clarification of note contents. I am managing Carrillo Lynn for complex chronic condition(s) serving as the focal point for the patient's care for consistency and continuity over time. HPI/ROS Carrillo Lynn is a 54 y.o. male who is being seen in follow-up for psoriatic arthritis with axial involvement. Interval history I reviewed the nursing intake form. Any corrections needed have been updated in the HPI. Here for follow-up today after dermatology visit and to discuss medication change. Persist with more stiffness. Knees are stiff. Low back is stiff. Skin still flaring some. Was given topical agents by dermatology. Prior and initial history Diagnosed around age 29. Initially on paroxetine can and then switched to Enbrel. Main symptoms were mainly low back pain and has been found to have bilateral sacroiliitis. He has not had significant issues with psoriasis, and the joint symptoms preceded the skin involvement. Serologies/pertinent imaging and pathology RF/CCP negative. Prior rheumatology medications None PHYSICAL EXAM Vitals: 06/29/24 1151 BP: (!) 148/88 BP Location: Left arm Patient Position: Sitting Pulse: 73 Weight: 109.9 kg (242 lb 4.8 oz) Constitutional: ?No acute distress. Normal appearance. Not?ill-appearing. HENT: Head normocephalic?and atraumatic. Eyes: No discharge.??? Pulmonary: Pulmonary effort is normal. No?respiratory distress. Skin: Warm?and dry. Neurological: Alert. Psychiatric: ???Mood, affect, thought content normal. Musculoskeletal: No synovitis detected in hands. He does have small effusions in knees bilaterally. PAST MEDICAL HISTORY Past Medical History: Diagnosis Date Clotting disorder Hypertension Psoriatic arthritis (HCC) RHEUMATOLOGY FOLLOW-UP VISIT INTAKE: Have you had any new illnesses, infections, or hospitalizations? ? []Yes [x]No If yes, please specify: Are you having any side effects from your rheumatology medications? ? []Yes ? [x]No ? []N/A If yes, please specify: Are you having morning stiffness? ? [x]Yes []No How many minutes does it last? 1 hr Are you having any joint swelling? ? [x]Yes []No If yes, what joints? knees Global Assessment: Considering all of the ways that your disease affects you, how are you doing (0 = best ; 10 = worst)? 5 No show/cancellation policy provided to patient: []Yes []Patient declined [x]Patient previously received and declined additional copy documented in this encounter [facility] 06-07-2024 History of Presen t illness Narrative Pt.'s Enbrel required a PA, the online form was completed and submitted through [employer] The PA was approved, I was not given a case # but is approved until 06-07-25 documented in this encounter [facility] 04-29-2024 Note RHEUMATOLOGY FOLLOW- UP VISIT Patient Name: Carrillo Lynn : 1970 Medical Record: [id number] PCP: Thomas Saenz MD CHIEF COMPLAINT Psoriatic arthritis with axial involvement ASSESSMENT AND PLAN Carrillo Lynn is a 53 y.o. male who is being seen for evaluation of psoriatic arthritis with axial involvement.. Psoriatic arthritis Plaque psoriasis Bilateral sacroiliitis For the most part, he is doing well overall. He has had some slight increase in stiffness since last visit, but not so marked that he feels it warrants a change from that perspective. His plaque psoriasis has flared up a bit more. We will send him back to dermatology to determine if from a skin perspective we need to consider an alternate biologic agent. Referral to [facility] dermatology sent. Prescription for Enbrel 50 mg weekly reviewed. 1 year prescription for Enbrel 50 mg weekly SureClick pen sent. High risk medication use Patient had shingles since last visit, about a year ago. I have encouraged him to consider shingles vaccine. We did discuss pneumonia vaccine, but he is going to hold off for now. Return to clinic in 4 to 6 months. Please do not hesitate to contact me with any questions or concerns. Luis Balderas DO [facility] Rheumatology [address] [place] [address] O: [phone] F: [phone] The above recommendations were discussed with the patient who understands and agrees with the plan. Portions of this note were copied forward from the patient's last clinic visit.? I have reviewed and updated the history, physical exam, data, assessment and plan of the note so that it reflects the evaluation and management of the patient on 04/29/2024. Portions of this note were created with [employer]. Every effort was made to proofread, but sound-alike errors may occasionally occur. Please contact me for any clarification of note contents. I am managing Carrillo Lynn for complex chronic condition(s) serving as the focal point for the patient's care for consistency and continuity over time. HPI/ROS Carrillo Lynn is a 53 y.o. male who is being seen in follow-up for psoriatic arthritis with axial involvement. Interval history I reviewed the nursing intake form. Any corrections needed have been updated in the HPI. Here for 1 year follow-up today. Since last visit, feels like joints are getting a little bit worse. A bit more stiffness in his right knee and low back/hips. Overall, does feel like the Enbrel is lasting the full week. Skin psoriasis flaring up also a bit. Has not seen dermatology. He did have shingles about a year ago. He was on his face, but did not have significant symptoms in regards to pain. Did not involve his eye. Prior and initial history Diagnosed around age 29. Initially on paroxetine can and then switched to Enbrel. Main symptoms were mainly low back pain and has been found to have bilateral sacroiliitis. He has not had significant issues with psoriasis, and the joint symptoms preceded the skin involvement. Serologies/pertinent imaging and pathology RF/CCP negative. Prior rheumatology medications None PHYSICAL EXAM Vitals: 04/29/24 0910 BP: (!) 138/91 BP Location: Left arm Patient Position: Sitting Pulse: 66 Weight: 107.5 kg (236 lb 14.4 oz) Constitutional: ?No acute distress. Normal appearance. Not?ill-appearing. HENT: Head normocephalic?and atraumatic. Eyes: No discharge.??? Pulmonary: Pulmonary effort is normal. No?respiratory distress. Skin: Warm?and dry. Scaly above left ear. Slight plaque on left arm and left leg. Neurological: Alert. Psychiatric: ???Mood, affect, thought content normal. Musculoskeletal: Good fist formation bilaterally. PAST MEDICAL HISTORY Past Medical History: Diagnosis Date Clotting disorder Hypertension Psoriatic arthritis (HCC) AUTHENTICATED BY LUIS BALDERAS, ON 04/29/2024 13:07:21 [facility] 04-29-2024 History of Presen t illness Narrative Images from the original note were not included. RHEUMATOLOGY FOLLOW-UP VISIT Patient Name: Carrillo Lynn : 1970 Medical Record: [id number] PCP: Thomas Saenz MD CHIEF COMPLAINT Psoriatic arthritis with axial involvement ASSESSMENT AND PLAN Carrillo Lynn is a 53 y.o. male who is being seen for evaluation of psoriatic arthritis with axial involvement.. Psoriatic arthritis Plaque psoriasis Bilateral sacroiliitis For the most part, he is doing well overall. He has had some slight increase in stiffness since last visit, but not so marked that he feels it warrants a change from that perspective. His plaque psoriasis has flared up a bit more. We will send him back to dermatology to determine if from a skin perspective we need to consider an alternate biologic agent. Referral to [facility] dermatology sent. Prescription for Enbrel 50 mg weekly reviewed. 1 year prescription for Enbrel 50 mg weekly SureClick pen sent. High risk medication use Patient had shingles since last visit, about a year ago. I have encouraged him to consider shingles vaccine. We did discuss pneumonia vaccine, but he is going to hold off for now. Return to clinic in 4 to 6 months. Please do not hesitate to contact me with any questions or concerns. Luis Balderas DO [facility] Rheumatology [address] [place] [address] O: [phone] F: [phone] The above recommendations were discussed with the patient who understands and agrees with the plan. Portions of this note were copied forward from the patient's last clinic visit.? I have reviewed and updated the history, physical exam, data, assessment and plan of the note so that it reflects the evaluation and management of the patient on 04/29/2024. Portions of this note were created with [employer]. Every effort was made to proofread, but sound-alike errors may occasionally occur. Please contact me for any clarification of note contents. I am managing Carrillo Lynn for complex chronic condition(s) serving as the focal point for the patient's care for consistency and continuity over time. HPI/ROS Carrillo Lynn is a 53 y.o. male who is being seen in follow-up for psoriatic arthritis with axial involvement. Interval history I reviewed the nursing intake form. Any corrections needed have been updated in the HPI. Here for 1 year follow-up today. Since last visit, feels like joints are getting a little bit worse. A bit more stiffness in his right knee and low back/hips. Overall, does feel like the Enbrel is lasting the full week. Skin psoriasis flaring up also a bit. Has not seen dermatology. He did have shingles about a year ago. He was on his face, but did not have significant symptoms in regards to pain. Did not involve his eye. Prior and initial history Diagnosed around age 29. Initially on paroxetine can and then switched to Enbrel. Main symptoms were mainly low back pain and has been found to have bilateral sacroiliitis. He has not had significant issues with psoriasis, and the joint symptoms preceded the skin involvement. Serologies/pertinent imaging and pathology RF/CCP negative. Prior rheumatology medications None PHYSICAL EXAM Vitals: 04/29/24 0910 BP: (!) 138/91 BP Location: Left arm Patient Position: Sitting Pulse: 66 Weight: 107.5 kg (236 lb 14.4 oz) Constitutional: ?No acute distress. Normal appearance. Not?ill-appearing. HENT: Head normocephalic?and atraumatic. Eyes: No discharge.??? Pulmonary: Pulmonary effort is normal. No?respiratory distress. Skin: Warm?and dry. Scaly above left ear. Slight plaque on left arm and left leg. Neurological: Alert. Psychiatric: ???Mood, affect, thought content normal. Musculoskeletal: Good fist formation bilaterally. PAST MEDICAL HISTORY Past Medical History: Diagnosis Date Clotting disorder Hypertension Psoriatic arthritis (HCC) RHEUMATOLOGY FOLLOW-UP VISIT INTAKE: Have you had any new illnesses, infections, or hospitalizations? ? [x]Yes []No If yes, please specify: shingles Are you having any side effects from your rheumatology medications? ? []Yes ? [x]No ? []N/A If yes, please specify: Are you having morning stiffness? ? [x]Yes []No How many minutes does it last? 30 Are you having any joint swelling? ? [x]Yes []No If yes, what joints? knees Global Assessment: Considering all of the ways that your disease affects you, how are you doing (0 = best ; 10 = worst)? 3.0 No show/cancellation policy provided to patient: []Yes []Patient declined [x]Patient previously received and declined additional copy documented in this encounter [facility] 05-21-2023 History of Presen t illness Narrative Pt.'s Enbrel sureclick (pt did use syringe but changed to pen) required a PA, the online form was completed and submitted through [employer]. The PA was approved, end date is all I was given 05-20-24 documented in this encounter [facility] 04-30-2023 Telephone encounter Note RECEIVED NOTICE FROM PHARMACY, PT HAS HISTORY OF ENBREL SYRINGE USE THEY RECEIVED FOR THE SURECLICK. ASKING FOR NEW RX WITH CORRECT TYPE. [facility] 04-30-2023 Miscellaneous Notes RECEIVED NOTICE FROM PHARMACY, PT HAS HISTORY OF ENBREL SYRINGE USE THEY RECEIVED FOR THE SURECLICK. ASKING FOR NEW RX WITH CORRECT TYPE. documented in this encounter [facility] 04-29-2023 History of Presen t illness Narrative Images from the original note were not included. RHEUMATOLOGY FOLLOW-UP VISIT Patient Name: Carrillo Lynn : 1970 Medical Record: [id number] PCP: Thomas Saenz MD CHIEF COMPLAINT Psoriatic arthritis with axial involvement ASSESSMENT AND PLAN Carrillo Lynn is a 52 y.o. male who is being seen for evaluation of psoriatic arthritis with axial involvement.. Psoriatic arthritis Bilateral sacroiliitis With axial involvement. Overall, doing well on Enbrel. Would like to switch to autoinjector. 1 year prescription for Enbrel 50 mg weekly SureClick pen sent. High risk medication use Patient advised to remain up-to-date on vaccines. He recently had labs with his primary care provider, which we will request. Return to clinic in 1 year. Sooner if issues. Please do not hesitate to contact me with any questions or concerns. Luis Balderas DO [facility] Rheumatology [address] [place] [address] O: [phone] F: [phone] The above recommendations were discussed with the patient who understands and agrees with the plan. Portions of this note were copied forward from the patient's last clinic visit.? I have reviewed and updated the history, physical exam, data, assessment and plan of the note so that it reflects the evaluation and management of the patient on 04/29/2023. Portions of this note were created with [employer]. Every effort was made to proofread, but sound-alike errors may occasionally occur. Please contact me for any clarification of note contents. I am managing Carrillo Lynn for complex chronic condition(s) serving as the focal point for the patient's care for consistency and continuity over time. HPI/ROS Carrillo Lynn is a 52 y.o. male who is being seen in follow-up for psoriatic arthritis with axial involvement. Interval history I reviewed the nursing intake form. Any corrections needed have been updated in the HPI. Plan Dr. Winn patient. Here to establish care today. Overall, doing well. Enbrel is working well. Would like to change to the pen injector. Had shingles a couple weeks ago. 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 Prior and initial history Diagnosed around age 29. Initially on paroxetine can and then switched to Enbrel. Main symptoms were mainly low back pain and has been found to have bilateral sacroiliitis. He has not had significant issues with psoriasis, and the joint symptoms preceded the skin involvement. Serologies/pertinent imaging and pathology RF/CCP negative. Prior rheumatology medications Piroxicam PHYSICAL EXAM Vitals: 04/29/23 0843 BP: 130/78 Pulse: 63 Weight: 119.3 kg (263 lb) Constitutional: ?No acute distress. Normal appearance. Not?ill-appearing. HENT: Head normocephalic?and atraumatic. Eyes: No discharge.??? Pulmonary: Pulmonary effort is normal. No?respiratory distress. Skin: Warm?and dry. No rash over exposed surfaces. Neurological: Alert. Psychiatric: ???Mood, affect, thought content normal. Musculoskeletal: Synovitis detected in hands. Significant nail pitting. May be from slight ridging. Good forward flexion of the lumbar spine. PAST MEDICAL HISTORY Past Medical History: Diagnosis Date Clotting disorder (HCC) Hypertension Psoriatic arthritis (HCC) MEDICATIONS Reviewed. RHEUMATOLOGY FOLLOW-UP VISIT INTAKE: Have you had any new illnesses, infections, or hospitalizations? ? [x]Yes []No If yes, please specify: shingles Are you having any side effects from your rheumatology medications? ? []Yes ? [x]No ? []N/A If yes, please specify: Are you having morning stiffness? ? [x]Yes []No How many minutes does it last? 1/2 hour / hot shower Are you having any joint swelling? ? []Yes [x]No If yes, what joints? Global Assessment: Considering all of the ways that your disease affects you, how are you doing (0 = best ; 10 = worst)? 1.5 documented in this encounter [facility] 03-20-2023 Telephone encounter Note Sent. Further fills and labs at upcoming appt. [facility] 03-20-2023 Miscellaneous Notes Sent. Further fills and labs at upcoming appt. Rheumatology Refill Request Follow-up scheduled? [x]Yes []No Labs at [facility]: Lab Results Component Value Date WBC 4.10 (L) 04/09/2022 HGB 16.4 04/09/2022 HCT 48.2 04/09/2022 MCV 91.8 04/09/2022 EXTMCV 90.8 01/14/2018 PLT 191 04/09/2022 RBC 5.25 04/09/2022 Lab Results Component Value Date CREATININE 1.44 (H) 04/09/2022 Lab Results Component Value Date ALT 39 04/09/2022 AST 20 04/09/2022 ALKPHOS 40 04/09/2022 BILITOT 0.8 04/09/2022 Location of labs outside of [facility]: []CareEverywhere []Scanned into Media []N/A For hydroxychloroquine only: Eye exam within the last 12 months? []Yes []No [x]N/A NOTE: SARAH pt, has appt with you on 04-29-23 documented in this encounter [facility] 03-20-2023 Telephone encounter Note Rheumatology Refill Request Follow-up scheduled? [x]Yes []No Labs at [facility]: Lab Results Component Value Date WBC 4.10 (L) 04/09/2022 HGB 16.4 04/09/2022 HCT 48.2 04/09/2022 MCV 91.8 04/09/2022 EXTMCV 90.8 01/14/2018 PLT 191 04/09/2022 RBC 5.25 04/09/2022 Lab Results Component Value Date CREATININE 1.44 (H) 04/09/2022 Lab Results Component Value Date ALT 39 04/09/2022 AST 20 04/09/2022 ALKPHOS 40 04/09/2022 BILITOT 0.8 04/09/2022 Location of labs outside of [facility]: []CareEverywhere []Scanned into Media []N/A For hydroxychloroquine only: Eye exam within the last 12 months? []Yes []No [x]N/A NOTE: SARAH pt, has appt with you on 04-29-23 [facility] 10-21-2022 History of Presen t illness Narrative Pt.'s Enbrel required a PA, the online form was completed and submitted through [employer]. See attached document documented in this encounter [facility] 05-21-2022 History of Presen t illness Narrative Pt.'s Enbrel was approved through [employer] No case # given, approved until 11-15-22 Pt.'s Enbrel required a PA, the online form was completed and submitted through [employer] [facility] [place] 05-19-2022 History of Presen t illness Narrative Pt.'s Enbrel required a PA, the online form was completed and submitted through [employer]/Libby documented in this encounter [facility] [place] 04-09-2022 History of Presen t illness Narrative Images from the original note were not included. RHEUMATOLOGY EST PATIENT VISIT Patients name: Carrillo Lynn : 1970 Today's date: 04/09/2022 Reason for visit: f/u Disease summary:PsA diagnosed in ~1999 @ 29 years of age. Status: controlled. Serology: +ve -ve RF, CCP Radiology: Current Meds:Enbrel 40mg Qweekly Pain control: Prior Meds: peroxicam, never on MTX HPC: This is a 51 y.o. male with a pmhx of remote pulmonary embolism, DJD, HTN who is here for follow-up of his psoriatic arthritis. This was diagnosed approximately 20 years ago. He has not experienced any significant morning stiffness, swollen or painful joints. Noted in his chart that he has a history of multiple nodules of the lung. Outside records obtained -> in media file. Prior Rheumatology appointments; Former Dr. Rich patient 01/05/2020 -- Interim: Patient is here for follow-up of psoriatic arthritis. He was first diagnosed approximately 15 years ago. His initial symptoms were mostly spine bilateral sacroiliitis and lower back pain. He does not recall if an MRI was done at the time but suspect this was not done. He failed NSAIDs since this was progressed to anti-TNF therapy. He has been on the same therapy for approximately 15 years or more and his disease has been completely controlled on this drug. He does not experience any significant injection site reactions. He is compliant with the drug. He does not have any psoriatic skin disease. He does not have any psoriatic nail disease. He does experience bilateral shoulder pain however this is attributed to some rotator cuff arthropathy/DJD. I have reviewed the patient's medical history in detail and updated the computerized patient record. Past Medical History: Diagnosis Date Clotting disorder (HCC) Hypertension Psoriatic arthritis (HCC) Past Surgical History: Procedure Laterality Date HAND SURGERY Left Social History Tobacco Use Smoking status: Never Smokeless tobacco: Former Vaping Use Vaping Use: Never used Substance Use Topics Alcohol use: Yes Comment: occasionally Drug use: No Family History Problem Relation Age of Onset Arthritis Mother Heart disease Father Kidney disease Father Allergies Allergen Reactions Amoxicillin Rash Outpatient Medications Marked as Taking for the 04/09/22 encounter (Office Visit) with Tegan Winn MD Medication Sig Dispense Refill aspirin 325 MG tablet Take 1 (one) tablet (325 mg total) by mouth daily . atenolol (TENORMIN) 50 MG tablet Take 1 (one) tablet (50 mg total) by mouth daily . cholecalciferol, vitamin D3, 50 mcg (2,000 unit) Tab Take 1 (one) tablet (2,000 Units total) by mouth daily . cod liver oil Oil Take by mouth daily . EnbreL 50 mg/mL (1 mL) single use prefilled syringe Inject 1 mL (50 mg total) under the skin once a week . 4 mL 0 folic acid (FOLVITE) 800 MCG tablet Take 1 (one) tablet (800 mcg total) by mouth daily . Review of Systems: General Constitutional: Denied fevers, chills, anorexia, weight loss, or night sweats Eyes: denied blurry vision, dry eyes ENT: denied nasal drainage, sinus pressure, nasal ulcers Mouth: denied oral ulcers, dry mouth Lymphatics: no new adenopathy in cervical, supraclavicular, axillary, inguinal regions Respiratory: no cough, SOB CV: denied palpitations, chest pain/pressure, PND, orthopnea. GI: denied abd pain, n/v/d, constipation, melena. : denied dysuria, urgency, frequency or hematuria. Skin: no rashes or lesions Musculoskeletal: as per HPI Hematologic/lmmunologic: no adenopathy, bleeding, easy bruisiality or recurrent infection. Neurology: Denied new headaches, speech/balance/coordination problems. Denied new focal numbness or weakness of extremities Psych: denied anxiety, depression or mood swings A 10 point review of systems was completed. Physical Exam: BP 122/82 Pulse 62 Wt 120.7 kg (266 lb) BMI 35.09 kg/m Gen: NAD, resting comfortably,Alert, cooperative, no distress, appears stated age HEENT: NCAT, no temporal wasting, EOMI, perrl, anicteric sclerae, mmm, no op lesions Neck: supple, no thyromegaly or LAD, no bruits Lymphatics: no cervical, axillary, or inguinal adenopathy Chest: Good a/e b/l, no added sounds, no respiratory distress CV: RRR, no m/r/g, normal S1, S2 Abd: soft, nontender, nondistended, +BS, no hepatosplenomegaly Ext: no clubbing, cyanosis or edema MSK: No synovitis of the MCPs or PIPs. Crepitus of the knees no effusion or warmth. Skin: no rashes or lesions Neuro: no focal deficits, moves all four extremities Psych: Mood and affect appropriate DATA: I have reviewed lab work and imaging. Labs:reviewed. Imaging: reviewed. Health Maintenance Due Topic Date Due PSA Level Never done Colorectal Cancer Screening/Monitoring Never done Wellness Visit Never done Depression Screening (PHQ-2/9) Never done HIV Screening Never done COVID-19 Vaccine (2 - Pfizer series) 06/14/2020 Zoster Vaccines (1 of 2) Never done Sequential Influenza Vaccine (1) Never done Assessment & Plan Psoriatic arthritis, axial disease with saroilitis - controlled on enbrel - Plan: continue with weekly enbrel which he has been in since > 15 years - Labs: Biological labs Encounter for monitoring of etanercept therapy - Plan: All biologics suppress the immune system and increase the risk of infections. -People who take biologics are rodrigez likely to get infections such as upper respiratory infections, pneumonia, urinary tract infections, and skin infections. -Increased risk of opportunistic infections. -Risk of injection site reaction. -Counseled to hold biological if active infection or fever. -Advised to obtain vaccinations (PCV13 first then PPSV23 8 weeks later, yearly flu,shingrix,COVID) -Patient that have been treated with high-dose steroids, alkylating agents, antimetabolites or biologicals that are immunosuppressive or immunomodulator should receive a 3rd dose of the [email or web address] or moderna mRNA Covid vaccine. Bilateral rotator cuff arthropathy -Advised PT Bilateral AC DJD -Can return for AC steroid injections if need be. The patient indicates understanding of these issues and agrees with the plan. Return to clinic in 12 month(s) Telehealth appointments ok Tegan Winn MD [employer] Coloring Room Worker Note: To expedite correspondence this note was generated by [employer] recognition software. Some grammatical or spelling errors may occur using the system. documented in this encounter [facility] [place] [facility] 03-31-2022 Telephone encounter Note He needs appt. Last seen in 2020 [facility] [place] [facility] 03-31-2022 Miscellaneous Notes He needs appt. Last seen in 2020 documented in this encounter [facility] [place] 03-06-2022 History of Presen t illness Narrative Per the pt.'s insurance they only allow 30 days supply at a time for specialty medications Per [facility] Enbrel does not require a PA. Pt.'s Enbrel required a PA, the online form was completed and submitted through [facility] documented in this encounter [facility] [place] 03-05-2022 History of Presen t illness Narrative Per [facility] Enbrel does not require a PA. Pt.'s Enbrel required a PA, the online form was completed and submitted through [employer] documented in this encounter [facility] [place] 02-21-2022 History of Presen t illness Narrative Pt.'s Enbrel required a PA, the online form was completed and submitted through [facility] documented in this encounter [facility] [place] Evaluation note Diagnosis Psoriatic arthritis (HCC) Psoriatic arthropathy [facility] Psoriatic arthritis (HCC) [facility]iatic arthropathy [facility] Diagnosis Psoriatic arthritis (HCC) Psoriatic arthropathy [facility] Diagnosis Psoriasis with arthropathy (HCC)- Primary Psoriatic arthropathy Bilateral sacroiliitis (HCC) Encounter for monitoring of etanercept therapy Encounter for screening for viral disease Healthcare maintenance Psoriatic arthritis (HCC) Psoriatic arthropathy Rotator cuff arthropathy of both shoulders Acromioclavicular arthrosis, bilateral [facility] Diagnosis Bilateral sacroiliitis (HCC) Psoriatic arthritis (HCC) Psoriatic arthropathy [facility] Diagnosis Psoriatic arthritis (HCC)- Primary Psoriatic arthropathy Bilateral sacroiliitis (HCC) [facility] Diagnosis Psoriatic arthritis (HCC)- Primary Psoriatic arthropathy Bilateral sacroiliitis (HCC) High risk medication use [facility] Diagnosis Psoriasis- Primary Other psoriasis Bilateral sacroiliitis (HCC) Psoriatic arthritis (HCC) Psoriatic arthropathy High risk medication use [facility] Diagnosis Psoriasis- Primary Other psoriasis Psoriatic arthritis (HCC) Psoriatic arthropathy High risk medication use [facility] Assessments Diagnosis Psoriatic arthritis (HCC) Psoriatic arthropathy Diagnosis Psoriatic arthritis (HCC) Psoriatic arthropathy Diagnosis Psoriatic arthritis (HCC)- Primary Psoriatic arthropathy Encounter for monitoring of etanercept therapy Osteoarthritis, unspecified osteoarthritis type, unspecified site Healthcare maintenance Diagnosis Psoriatic arthritis (HCC) Psoriatic arthropathy Diagnosis Psoriatic arthritis (HCC)- Primary Psoriatic arthropathy Encounter for monitoring of etanercept therapy Healthcare maintenance Multiple lung nodules Other diseases of lung, not elsewhere classified Osteoarthritis, unspecified osteoarthritis type, unspecified site Diagnosis Multiple lung nodules Other diseases of lung, not elsewhere classified Summary Purpose Family History No Family History Records FoundUnknown Family Member Name Dates Details Family history of cardiac di sorder: Father(V17.49, Z82.49) Status:Active Advance Directives No Advanced Directives Records FoundDocuments on File Type Date Recorded Patient [employer] Advance Directives and Living Will Documents on File Type Date Recorded Patient [employer] Advance Directives and Livin g Will 01/05/2020 1:24 PM Documents on File Type Date Recorded Patient [employer] Advance Directives and Livin g Will 04/11/2020 12:00 AM History of Present Illness * Carson Rich MD - 01/13/2019 4:35 PM EST [facility]. Name: Carrillo Lynn Date:01/13/19 [id number] :1970 Allergies: Amoxicillin Medications: Current Outpatient Medications: aspirin 325 MG tablet, Take 325 mg by mouth daily ., Disp: , Rfl: atenolol (TENORMIN) 50 MG tablet, Take 50 mg by mouth daily., Disp: , Rfl: ENBREL 50 mg/mL (1 mL) single use prefilled syringe, Inject 40 mg subcutaneously every Thursday. ., Disp: 4 mL, Rfl: 5 folic acid (FOLVITE) 800 MCG tablet, Take 800 mcg by mouth daily ., Disp: , Rfl: cholecalciferol, vitamin D3, (VITAMIN D3) 2,000 unit Tab, Take 2,000 Units by mouth daily ., Disp: , Rfl: Chief Complaint: Patient here for psoriatic arthritis evaluation Interim History: The patient reports that he feels he is doing well with respect to his arthritis. He has less than 20 minutes of morning stiffness. He has had no major flareups since his last visit. He has had no infections since his last visit. He has no trouble giving himself the Enbrel injections. He has not had any injection site reactions. He notes his psoriasis is for the most part under good control. He notes his new primary care physician is Dr. Thomas Saenz of [place]. Interim ROS: Eyes:_Denies new ocular events___ Derm:_Denies new dermatologic disease____ ENT:__Denies new ear nose throat events___ Cardio:_Denies new cardiac conditions___ Pulm:_Denies new pulmonary problems____ G.I:_Denies new intestinal issues Renal:_No new renal disorders____ Hem/Onc:_No new hematologic oncologic diagnoses___ Interim Social History: No change Exams: The wrists have full range of motion with no tenderness or swelling. The MCPs, PIPs DIPs demonstrate no synovitis, no deformity and no tenderness. The patient is able to make a tight fist bilaterally Interim Lab Review: Status: Final result Visible to patient: No (Not Released) Next appt: 01/12/2020 at 04:00 PM in Orthopedic Surgery (Carson Rich MD) Component Ref Range & Units 12mo ago WBC 3.6 - 10.4 K/mcL 6.6 RBC 4.0 - 5.5 M/mcL 5.45 Hemoglobin 12.9 - 16.9 g/dL 16.8 Hematocrit 37.9 - 49.2 % 49.5High MCV 82.8 - 99.3 FL 90.8 MCH 27.7 - 34.6 pg 30.8 MCHC 32.9 - 35.5 g/dL 33.9 RDW 10 - 14.3 % 12.5 Platelets 139 - 354 K/mcL 267 MPV 6.6 - 10.8 FL 9.1 Absolute Neutrophils 1.4 - 6.8 K/mcL 3.4 Absolute Lymphocytes 0.9 - 3.6 K/mcL 2.1 Absolute Monocytes 0.2 - 0.6 K/mcL 0.9High Absolute Eosinophils 0 - 0.5 K/mcL 0.2 Absolute Basophils 0 - 0.2 K/mcL 0.0 Segmented Neut % 51.6 Lymphocytes % 31.3 Monocytes % 13.7 Eosinophils % 2.8 Basophils % 0.6 Status: Final result Visible to patient: No (Not Released) Next appt: 01/12/2020 at 04:00 PM in Orthopedic Surgery (Carson Rich MD) Component Ref Range & Units 12mo ago Sed Rate 0 - 15 MM/hr. 3 Status: Final result Visible to patient: No (Not Released) Next appt: 01/12/2020 at 04:00 PM in Orthopedic Surgery (Carson Rich MD) Component Ref Range & Units 12mo ago CRP - Inflammation 0.0 - 10.0 mg/L < 2.9 Status: Final result Visible to patient: No (Not Released) Next appt: 01/12/2020 at 04:00 PM in Orthopedic Surgery (Carson Rich MD) Component Ref Range & Units 12mo ago WBC 3.6 - 10.4 K/mcL 6.6 RBC 4.0 - 5.5 M/mcL 5.45 Hemoglobin 12.9 - 16.9 g/dL 16.8 Hematocrit 37.9 - 49.2 % 49.5High MCV 82.8 - 99.3 FL 90.8 MCH 27.7 - 34.6 pg 30.8 MCHC 32.9 - 35.5 g/dL 33.9 RDW 10 - 14.3 % 12.5 Platelets 139 - 354 K/mcL 267 MPV 6.6 - 10.8 FL 9.1 Absolute Neutrophils 1.4 - 6.8 K/mcL 3.4 Absolute Lymphocytes 0.9 - 3.6 K/mcL 2.1 Absolute Monocytes 0.2 - 0.6 K/mcL 0.9High Absolute Eosinophils 0 - 0.5 K/mcL 0.2 Absolute Basophils 0 - 0.2 K/mcL 0.0 Segmented Neut % 51.6 Lymphocytes % 31.3 Monocytes % 13.7 Eosinophils % 2.8 Basophils % 0.6 Reviewed lab test results with the patient. Impression: Psoriatic arthritis, appears clinically well controlled at this time Plan: 1. Reviewed situation with the patient. We will continue his Enbrel as is for now. 2. Return in 1 year or sooner as needed. 3. More than 50% of the 15-minute office time today was spent counseling. Please note: Portions of this chart may have been created with [employer] voice recognition software. Occasional wrong-word or sound-like substitutions may have occurred due to inherent limitations of the voice recognition software. Please read the chart carefully and recognize, using context, where the substitutions have occurred. Carson Rich MD documented in this encounter* Tegan Winn MD - 01/05/2020 12:46 PM EDT RHEUMATOLOGY EST PATIENT VISIT Patients name: Carrillo Lynn : 1970 Today's date: 01/05/2020 Reason for visit: f/u Disease summary:PsA diagnosed in ~1999. Status: controlled. Serology: +ve -ve Radiology: Current Meds:Enbrel 40mg Qweekly Pain control: Prior Meds: peroxicam, never on MTX HPC: This is a 49 y.o. male with a pmhx of remote pulmonary embolism, DJD, HTN who is here for follow-up of his psoriatic arthritis. This was diagnosed approximately 20 years ago. Interim: He has not experienced any significant morning stiffness, swollen or painful joints. He denies significant flareups. He has been engaging in a lot of manual work and yard work and sometimes he is little sore if he overdoes it. He takes Enbrel every week however he has not had Enbrel in 2 weeks because he did not have a physician to prescribe it. He did notice a difference and increased joint pain and swelling when he missed a dose of Enbrel. Otherwise he has no skin findings, no issueswith his toes. I have reviewed the patient's medical history in detail and updated the computerized patient record. Past Medical History: Diagnosis Date Clotting disorder (HCC) Hypertension Psoriatic arthritis (HCC) Past Surgical History: Procedure Laterality Date HAND SURGERY Left Social History Tobacco Use Smoking status: Never Smoker Smokeless tobacco: Former User Substance Use Topics Alcohol use: Yes Comment: occasionally Drug use: No Family History Problem Relation Age of Onset Arthritis Mother Heart disease Father Kidney disease Father Allergies Allergen Reactions Amoxicillin Rash Outpatient Medications Marked as Taking for the 01/05/20 encounter (Office Visit) with Tegan Winn MD Medication Sig Dispense Refill aspirin 325 MG tablet Take 325 mg by mouth daily . atenolol (TENORMIN) 50 MG tablet Take 50 mg by mouth daily. cholecalciferol, vitamin D3, (VITAMIN D3) 2,000 unit Tab Take 2,000 Units by mouth daily . cod liver oil Oil Take by mouth daily . EnbreL 50 mg/mL (1 mL) single use prefilled syringe Inject 40 mg under the skin once every Thursday. Keep Refrigerated. . 12 mL 5 folic acid (FOLVITE) 800 MCG tablet Take 800 mcg by mouth daily . [DISCONTINUED] EnbreL 50 mg/mL (1 mL) single use prefilled syringe Inject 40 mg under the skin onceevery Thursday. Keep Refrigerated. . 4 mL 2 Review of Systems: General Constitutional: Denied fevers, chills, anorexia, weight loss, or night sweats Eyes: denied blurry vision, dry eyes ENT: denied nasal drainage, sinus pressure, nasal ulcers Mouth: denied oral ulcers, dry mouth Lymphatics: no new adenopathy in cervical, supraclavicular, axillary, inguinal regions Respiratory: no cough, SOB CV: denied palpitations, chest pain/pressure, PND, orthopnea. GI: denied abd pain, n/v/d, constipation, melena. : denied dysuria, urgency, frequency or hematuria. Skin: no rashes or lesions Musculoskeletal: as per HPI Hematologic/lmmunologic: no adenopathy, bleeding, easy bruisiality or recurrent infection. Neurology: Denied new headaches, speech/balance/coordination problems. Denied new focal numbness orweakness of extremities Psych: denied anxiety, depression or mood swings A 10 point review of systems was completed. Physical Exam: BP (!) 160/81 Pulse 69 Ht 6' 1 Wt 116.1 kg (256 lb) BMI 33.78 kg/m Gen: NAD, resting comfortably,Alert, cooperative, no distress, appears stated age HEENT: NCAT, no temporal wasting, EOMI, perrl, anicteric sclerae, mmm, no op lesions Neck: supple, no thyromegaly or LAD, no bruits Lymphatics: no cervical, axillary, or inguinal adenopathy Chest: Good a/e b/l, no added sounds, no respiratory distress CV: RRR, no m/r/g, normal S1, S2 Abd: soft, nontender, nondistended, +BS, no hepatosplenomegaly Ext: no clubbing, cyanosis or edema MSK: No synovitis of the MCPs or PIPs. Crepitus of the knees no effusion or warmth. TTP on b/l SI joints Skin: no rashes or lesions Neuro: no focal deficits, moves all four extremities Psych: Mood and affect appropriate DATA: I have reviewed lab work and imaging. Labs:reviewed. Imaging: reviewed. Health Maintenance Due Topic Date Due PSA Level 1970 Tetanus: Every 10yrs 1970 Wellness Visit 05/14/1974 HIV Screening 05/14/1986 Hepatitis C Screening 05/14/1989 Sequential Influenza Vaccine (1) 11/08/2019 Assessment & Plan 1. Psoriatic arthritis-controlled -Continue with Enbrel 50 mg subcutaneously once a week. -We will obtain laboratory work today such as ESR, CRP, HLA-B27, rheumatoid factor, CCP & uric acid. -We will also obtain x-rays of his hands and pelvis. -Suspect any pain he has is secondary to DJD. -We will also check a biological screening labs: -Biological pretreatment screening: -Hepatitis B surface antigen (HBsAg), hepatitis B surface antibody, -hepatitis B core antibody,hepatitis C virus antibody, -QuantiFERON-TB test 2. Long-term etanercept therapy -Explained to patient that if he is not to take Enbrel if in the event he develops an infection or fever. -He is aware that he needs to keep up-to-date with his pneumococcal and influenza vaccinations. 3. DJD - I explained that the goals of osteoarthritis management are to minimize pain, optimize function, and beneficially modify the process of joint damage. -The primary aim is to target modifiable risk factors. Discussed that although there are no approved disease-modifying OA drugs, a wide selection of interventions are available to address pain and function 4. Healthcare maintenance- not UTD -Explained to the patient importance of keeping up-to-date on pneumococcal vaccinations as well as his health maintenance. The patient indicates understanding of these issues and agrees with the plan. Return to clinic in 6 month(s) Telehealth appointments ok Tegan Winn MD [employer] Press Operator Coloring Room Worker Note: To expedite correspondence this note was generated by [employer] voice recognition software. Somegrammatical or spelling errors may occur using the system. documented in this encounter* Tegan Winn MD - 04/10/2020 9:28 PM EST RHEUMATOLOGY EST PATIENT VISIT Patients name: Carrillo Lynn : 1970 Today's date: 04/11/2020 Reason for visit: f/u Disease summary:PsA diagnosed in ~1999 @ 29 years of age. Status: controlled. Serology: +ve -ve RF, CCP Radiology: Current Meds:Enbrel 40mg Qweekly Pain control: Prior Meds: peroxicam, never on MTX HPC: This is a 49 y.o. male with a pmhx of remote pulmonary embolism, DJD, HTN who is here for follow-up of his psoriatic arthritis. This was diagnosed approximately 20 years ago. Prior Rheumatology appointments; Former Dr. Rich patient 01/05/2020 -- Interim: He has not experienced any significant morning stiffness, swollen or painful joints. Notedin his chart that he has a history of multiple nodules of the lung. Patient reports to me that thiswas thoroughly investigated and did not feel that he required treatment or subsequent follow-up. Wewill try to obtain these records. Otherwise he has no major complaints, No issues, waiting to obtain Covid vaccination. No injection site reactions, no complaints of psoriatic skin lesions or significant inflammatory joint symptoms. I have reviewed the patient's medical history in detail and updated the computerized patient record. Past Medical History: Diagnosis Date Clotting disorder (HCC) Hypertension Psoriatic arthritis (HCC) Past Surgical History: Procedure Laterality Date HAND SURGERY Left Social History Tobacco Use Smoking status: Never Smoker Smokeless tobacco: Former User Substance Use Topics Alcohol use: Yes Comment: occasionally Drug use: No Family History Problem Relation Age of Onset Arthritis Mother Heart disease Father Kidney disease Father Allergies Allergen Reactions Amoxicillin Rash Outpatient Medications Marked as Taking for the 04/11/20 encounter (Office Visit) with Tegan Winn MD Medication Sig Dispense Refill aspirin 325 MG tablet Take 325 mg by mouth daily . atenolol (TENORMIN) 50 MG tablet Take 50 mg by mouth daily. cholecalciferol, vitamin D3, (VITAMIN D3) 2,000 unit Tab Take 2,000 Units by mouth daily . cod liver oil Oil Take by mouth daily . EnbreL 50 mg/mL (1 mL) single use prefilled syringe Inject 40 mg under the skin once every Thursday. Keep Refrigerated. . 12 mL 5 folic acid (FOLVITE) 800 MCG tablet Take 800 mcg by mouth daily . Review of Systems: General Constitutional: Denied fevers, chills, anorexia, weight loss, or night sweats Eyes: denied blurry vision, dry eyes ENT: denied nasal drainage, sinus pressure, nasal ulcers Mouth: denied oral ulcers, dry mouth Lymphatics: no new adenopathy in cervical, supraclavicular, axillary, inguinal regions Respiratory: no cough, SOB CV: denied palpitations, chest pain/pressure, PND, orthopnea. GI: denied abd pain, n/v/d, constipation, melena. : denied dysuria, urgency, frequency or hematuria. Skin: no rashes or lesions Musculoskeletal: as per HPI Hematologic/lmmunologic: no adenopathy, bleeding, easy bruisiality or recurrent infection. Neurology: Denied new headaches, speech/balance/coordination problems. Denied new focal numbness orweakness of extremities Psych: denied anxiety, depression or mood swings A 10 point review of systems was completed. Physical Exam: BP 134/77 Pulse 67 Wt 112.5 kg (248 lb) BMI 32.72 kg/m Gen: NAD, resting comfortably,Alert, cooperative, no distress, appears stated age HEENT: NCAT, no temporal wasting, EOMI, perrl, anicteric sclerae, mmm, no op lesions Neck: supple, no thyromegaly or LAD, no bruits Lymphatics: no cervical, axillary, or inguinal adenopathy Chest: Good a/e b/l, no added sounds, no respiratory distress CV: RRR, no m/r/g, normal S1, S2 Abd: soft, nontender, nondistended, +BS, no hepatosplenomegaly Ext: no clubbing, cyanosis or edema MSK: No synovitis of the MCPs or PIPs. Crepitus of the knees no effusion or warmth. TTP on b/l SI joints Skin: no rashes or lesions Neuro: no focal deficits, moves all four extremities Psych: Mood and affect appropriate DATA: I have reviewed lab work and imaging. Labs:reviewed. Imaging: reviewed. Health Maintenance Due Topic Date Due PSA Level 1971 Wellness Visit 05/14/1974 Depression Screening (PHQ9) 1983 HIV Screening 05/14/1986 Sequential Influenza Vaccine (1) 11/08/2019 Assessment & Plan 1. Psoriatic arthritis-controlled -Continue with Enbrel 50 mg subcutaneously once a week. -Explained to patient low threshold to add a DMARD however he seems to be doing fine right now. 2. Long-term etanercept therapy -Explained to patient that if he is not to take Enbrel if in the event he develops an infection or fever. -He is aware that he needs to keep up-to-date with his pneumococcal and influenza vaccinations. -All biologics suppress the immune system and increase the risk of infections. -People who take biologics are rodrigez likely to get infections such as upper respiratory infections,pneumonia, urinary tract infections, and skin infections. -Increased risk of opportunistic infections. -Risk of injection site reaction. -Counseled to hold biological if active infection or fever. -Advised to obtain vaccinations (PCV13, PPSV23, flu, COVID), 3. History of multiple lung nodules -We will obtain outside records and make sure that we are not missing anything. -We will repeat a chest x-ray today to have as a baseline. 4. DJD - I explained that the goals of osteoarthritis management are to minimize pain, optimize function, and beneficially modify the process of joint damage. -The primary aim is to target modifiable risk factors. Discussed that although there are no approved disease-modifying OA drugs, a wide selection of interventions are available to address pain and function 5. Healthcare maintenance- not UTD -Explained to the patient importance of keeping up-to-date on pneumococcal vaccinations as well as his health maintenance. -Vitamin D supplementation recommended, optimal dose is the dose necessary to achieve Vitamin D 25-OH blood level in range of 40-50 ng/mL. (Vitamin D 1000 IU total a day, or dose necessary to achieve a Vitamin D 25-OH blood level in rangeof 40-50 ng/mL). -Recommended daily dose of calcium: 1200mg total a day in divided doses. Calcium from dietary sources, if not sufficient, or if with h/o calcium nephrolithiasis would recommend Calcium Citrate supplement, as it is recommended to avoid caclium carbonate products, which as main dietary calcium source. -Regular weight-bearing and muscle-strengthening exercise -Avoidance of tobacco smoking, excessive alcohol intake and excessive caffeine intake. -Fall and fracture precautions The patient indicates understanding of these issues and agrees with the plan. Return to clinic in 6-12 month(s) Telehealth appointments arden Winn MD [employer] Coloring Room Worker Note: To expedite correspondence this note was generated by [employer] voice recognition software. Somegrammatical or spelling errors may occur using the system. documented in this encounter Reason for Referral Specialty Diagnoses / Procedures Referred By Contac t Referred To Contact Diagnoses Bilateral sacroiliitis (HCC) Psoriatic arthritis (HCC) Luis Balderas, DO [address] [place] [address] Referral ID Status Reason Start Date Expiration Date V isits Requested Visits Authorized [id number] Pending Review 1 1 Additional Source Comments (unrecognized sect ion and content) No Status Records FoundNo Status Records FoundNo Status Records FoundNo Status Records FoundNo Status Records FoundNo Status Records FoundNo Status Records FoundNo Status Records Found INFORMATION SOURCE (unrecogn ized section and content) DATE CREATED AUTHOR 09/19/2017 [facility] DATE CREATED AUTHOR AUTHOR'S ORGANIZ ATION 10/30/2017 [facility] DATE CREATED AUTHOR AUTHOR'S ORGANIZ ATION 02/14/2018 [facility] DATE CREATED AUTHOR AUTHOR'S ORGANIZ ATION 03/12/2019 [facility] DATE CREATED AUTHOR AUTHOR'S ORGANIZ ATION 07/20/2020 [employer] DATE CREATED AUTHOR AUTHOR'S ORGANIZ ATION 04/13/2022 [facility] DATE CREATED AUTHOR AUTHOR'S ORGANIZ ATION 07/11/2024 [facility] DATE CREATED AUTHOR AUTHOR'S ORGANIZ ATION 07/24/2024 [facility] Care Teams (unrecognized sec tion and content) Access Database Developer Relationship Specialty Start Date End Date Thomas Saenz MD [address] [place], [place] [id number] PCP - General Family Medicine 04/11/20 Access Database Developer Relationship Specialty Start Date End Date Thomas Saenz MD [address] [place], [place] [id number] PCP - General Family Medicine 04/11/20 Access Database Developer Relationship Specialty Start Date End Date Thomas Saenz MD [address] [place] [address] PCP - General Family Medicine 04/11/20 Access Database Developer Relationship Specialty Start Date End Date No, Physician [facility] PCP - General 06/19/15 04/10/20 Thomas Saenz MD [address] [facility] [address] [place] [address] PCP - General Family Medicine 04/11/20 Access Database Developer Relationship Specialty Start Date End Date No, Physician [facility] PCP - General 06/19/15 04/10/20 Thomas Saenz MD [address] [facility] [address] [place] [address] PCP - General Family Medicine 04/11/20 Access Database Developer Relationship Specialty Start Date End Date Thomas Saenz MD [address] [facility] [address] [place] [address] PCP - General Family Medicine 04/11/20 Access Database Developer Relationship Specialty Start Date End Date Thomas Saenz MD [address] [facility] [address] [place] [address] PCP - General Family Medicine 04/11/20 Access Database Developer Relationship Specialty Start Date End Date Thomas Saenz MD [address] [facility] [address] [place] [address] PCP - General Family Medicine 04/11/20 Access Database Developer Relationship Specialty Start Date End Date Thomas Saenz MD [address] [place] [address] PCP - General Family Medicine 04/11/20 Access Database Developer Relationship Specialty Start Date End Date Thomas Saenz MD [address] [place] [address] PCP - General Family Medicine 04/11/20 Access Database Developer Relationship Specialty Start Date End Date Thomas Saenz MD [address] [place] [address] PCP - General Family Medicine 04/11/20 Access Database Developer Relationship Specialty Start Date End Date Thomas Saenz MD [address] [place] [address] PCP - General Family Medicine 04/11/20 Access Database Developer Relationship Specialty Start Date End Date Thomas Saenz MD [address] [place] [address] PCP - General Family Medicine 04/11/20 Access Database Developer Relationship Specialty Start Date End Date Thomas Saenz MD [address] [place] [address] PCP - General Family Medicine 04/11/20 Access Database Developer Relationship Specialty Start Date End Date Thomas Saenz MD [address] [place] [address] PCP - General Family Medicine 04/11/20 Reason for Visit (unrecogniz ed section and content) Reason Comments Medication Refill Reason Onset Date Comments Medication Refill 03/31/2022 Reason Onset Date Comments Medication Refill 03/20/2023 Reason Onset Date Comments Medication Refill 04/30/2023 FOR RECORDS PERTAINING TO PATIENTS WHO ARE OR HAVE BEEN ENROLLED IN A CHEMICAL DEPENDENCY/SUBSTANCEABUSE PROGRAM, SOME INFORMATION MAY BE OMITTED. This clinical summary was aggregated from multiple sources. Caution should be exercised in using it in the provision of clinical care. This summary normalizes information from multiple sources, and as a consequence, information in this document may materially change the coding, format and clinical context of patient data. In addition, data may be omitted in some cases. CLINICAL DECISIONS SHOULD BE BASED ON THE PRIMARY CLINICAL RECORDS. [facility] [employer] [facility]. provides no warranty or guarantee of the accuracy or completeness of information in this document.
[2024-08-30 10:12] LABS: Erythrocyte Sedimentation Rate 18 mm/hr (0-20)
[2024-08-30 10:14] LABS: Absolute Lymphocyte Count 1.03 X10^3/uL (0.83-4.51); Absolute Neutrophil Count 9.9 X10^3/uL (2.0-7.7); Basophil# 0.03 X10^3/uL; Basophil% 0.3 % (0-1); Hematocrit 47.1 % (40-54); Hemoglobin 16.2 g/dL (13.0-16.5); Lymphocyte # 1.03 X10^3/ul (0.83-4.51); Mean Corp Hgb Conc 34.4 g/dL (32-36); Mean Corpuscular Volume 90.2 fL (80-94); Mean Platelet Vol. 9.9 fl (6.2-12.0); Monocyte# 0.41 X10^3/uL; Monocyte% 3.6 % (0-10); NRBC Flagged by Analyzer 0 % (0-5); Neutrophil # 9.88 X10^3/uL (2.7-7.7); Neutrophil % 86.7 % (47-70); Platelet Count 373 K/mm3 (150-450); RBC Distribution Width CV 11.5 % (11.6-14.6); RBC Distribution Width SD 37.9 fl (35.1-43.9); Red Blood Count 5.22 M/mm3 (4.6-6.2); White Blood Count 11.4 K/mm3 (4.4-11.0)
[2024-08-30 10:55] LABS: ALB/GLOB Ratio 1.4 RATIO (0.9-2.4); AST(SGOT) 19 U/L (<=37); Alanine Aminotransfer ALT/SGPT 24 U/L (<=46); Albumin, Serum 4.4 g/dL (3.5-5.0); Alkaline Phosphatase 48 U/L (40-129); Anion Gap 15 (5-15); BUN 18 mg/dL (4-19); Carbon Dioxide 21.6 mmol/L (21.0-32.0); Chloride 101 mmol/L (98-108); Creatinine, Serum 1.25 mg/dL (0.70-1.20); EST Glomerular Filtration Rate 69 (>60); Globulin 3.1 g/dL (2.2-4.2); Glucose 195 mg/dL (70-99); Potassium 4.6 mmol/L (3.3-5.1); Protein, Total 7.5 g/dL (5.9-8.4); Sodium Level 138 mmol/L (133-145); Total Bilirubin 0.62 mg/dL (0.00-1.30); Vitamin D,25 Hydroxy 37.9 ng/mL (30-100)
[2024-08-30 11:04] LABS: Rheumatoid Factor < 10.0 IU/mL (<15); Uric Acid 8.2 mg/dL (3.5-7.2)
[2024-08-31 13:08] LABS: Lyme Scn Total Ab w/Rflx Negative (Negative)
[2024-08-31 16:09] LABS: Anti-Nuclear Antibody Test Negative (.)
== END | disposition home or self-care (01) ==
LOC: MTLAB 07:05
PROVIDERS: PCP Family Medicine; Referring Provider Family Medicine; Visit Provider Family Medicine
DX: M25.50 Pain in unspecified joint (principal)
CPT/HCPCS: 36415; 80053; 82306; 84443; 84550; 85025; 85652; 86038; 86140; 86431; 86618

== ENCOUNTER → 2024-09-08 | Outpatient (CLI) | payer OTHER, SELFPAY ==
[2024-09-08 18:31] LABS: CRP 26.40 mg/L (0.0-3.0)
[2024-09-12 11:08] LABS: ANTINUCLEAR ANTIBODIES DIRECT Negative (Negative)
== END | disposition home or self-care (01) ==
LOC: MTLAB 15:22
PROVIDERS: PCP Family Medicine; Referring Provider Family Medicine; Visit Provider Family Medicine
DX: M25.50 Pain in unspecified joint (principal)
CPT/HCPCS: 36415; 86038; 86140